=== PATIENT | female | born 1955 | race Hispanic/Latino ===

== ENCOUNTER 2018-03-06 08:38 | Emergency (ER) | payer OTHER ==
[2018-03-06] MEDS ORDERED: LIDOCAINE VISCOUS 2% SOLN 15 ML UDC ONE (09:49)
[2018-03-06] MEDS ORDERED: MAGNE/ALUM HYDROXD 30 ML UCUP ONE (09:49)
[2018-03-06] MEDS ORDERED: LORazepam 2 MG/ML VIAL ONE (09:49)
[2018-03-06 10:05] LABS: Absolute Lymphocytes (CBC) 1.9 K/uL (0.7-4.9); Absolute Monocytes 0.4 K/uL (0.1-1.3); Absolute Neutrophil 4.1 K/uL (1.8-8.0); Eosinophils % 5.5 % (0-4.4); Hematocrit 38.5 % (36.0-45.0); Lymphocytes % 27.5 % (15.3-44.8); MCH 30.3 pg (27.0-35.0); MCV 87.2 fL (80-100); MPV 8.4 fL (7.6-11.3); Monocytes % 5.2 % (3.3-12.3); RBC Red Blood Cell Count 4.41 M/uL (3.86-4.86)
[2018-03-06 10:22] LABS: Albumin 3.9 g/dL (3.4-5.0); Bilirubin Direct 0.1 mg/dL (0-0.2); Bilirubin Total 0.4 mg/dL (0.2-1.0); Potassium 4.2 mmol/L (3.5-5.1); Protein, Total 7.4 g/dL (6.4-8.2)
--- NOTE | 2018-03-06 11:00 | ER ---
Nurse's Notes [facility] Name: Sintia Garcia Age: 63 yrs Sex: Female : 1955 Arrival Date: 03/06/2018 Time: 08:44 Bed 17 Private MD: Ortega Tuttle E Diagnosis: Gastritis, unspecified, without bleeding Presentation: 03/06 09:00 Presenting complaint: Patient states: burning in epigastric region for past 3 days with em nausea, denies vomiting, hx of GERD, also c/o weakness and dizziness, also c/o high blood pressure and stopped taking prescribed medication due to all the side effects she read. Transition of care: patient was not received from another setting of care. Onset of symptoms was March 03, 2018. Risk Assessment: Do you want to hurt yourself or someone else? Patient reports no desire to harm self or others. Initial Sepsis Screen: Does the patient meet any 2 criteria? No. Patient's initial sepsis screen is negative. Does the patient have a suspected source of infection? No. Patient's initial sepsis screen is negative. Care prior to arrival: None. 09:00 Method Of Arrival: Ambulatory em 09:00 Acuity: SALOMON 3 iw Triage Assessment: 09:04 Headache History: Denies prior headaches. General: Appears in no apparent distress. em uncomfortable, obese, Behavior is cooperative, anxious. Pain: Complains of pain in epigastric area Pain currently is 6 out of 10 on a pain scale. Pain: Pain began 2-3 days ago. Also complains of no other associated symptoms. nausea. Neuro: Level of Consciousness is awake, alert, obeys commands, Oriented to person, place, time, situation. Historical: - Allergies: :04 No Known Allergies; em - PMHx: 09:04 High Cholesterol; GERD; Hyperlipidemia; em - PSHx: 09:04 Cholecystectomy; Hysterectomy; FOOT SX; Carpal Tunnel Repair; em - Immunization history:: Adult Immunizations not up to date. - Social history:: Smoking status: Patient/guardian denies using tobacco. - Ebola Screening: : Patient negative for fever greater than or equal to 101.5 degrees Fahrenheit, and additional compatible Ebola Virus Disease symptoms Patient denies exposure to infectious person Patient denies travel to an Ebola-affected area in the 21 days before illness onset No symptoms or risks identified at this time. Screenin:06 Abuse screen: Denies threats or abuse. Nutritional screening: No deficits noted. em Tuberculosis screening: No symptoms or risk factors identified. Fall Risk None identified. Assessment: 09:05 General: Appears uncomfortable, obese, Behavior is cooperative, anxious. Pain: em Complains of pain in epigastric area Pain currently is 6 out of 10 on a pain scale. Neuro: Level of Consciousness is awake, alert, obeys commands, Oriented to person, place, time, situation. Cardiovascular: Capillary refill < 3 seconds Patient's skin is warm and dry. Respiratory: Airway is patent Respiratory effort is even, unlabored, Respiratory pattern is regular, symmetrical. GI: Abdomen is obese, Reports nausea, Patient currently denies vomiting. : No signs and/or symptoms were reported regarding the genitourinary system. EENT: No signs and/or symptoms were reported regarding the EENT system. Derm: Skin is intact, Skin is pink, warm \T\ dry. Musculoskeletal: Range of motion: intact in all extremities. 09:15 Reassessment: Patient appears in no apparent distress at this time. I agree with above iw assessment by Murphy Argueta LVN. 10:00 Reassessment: Patient appears in no apparent distress at this time. Patient and/or em family updated on plan of care and expected duration. Pain level reassessed. Patient is alert, oriented x 3, equal unlabored respirations, skin warm/dry/pink. 11:10 Reassessment: Patient appears in no apparent distress at this time. Patient and/or em family updated on plan of care and expected duration. Pain level reassessed. Patient is alert, oriented x 3, equal unlabored respirations, skin warm/dry/pink. rates pain 4/10 Patient states feeling better. Patient states symptoms have improved. Vital Signs: 09:04 BP 159 / 86; Pulse 83; Resp 20; Temp 98.2(O); Pulse Ox 95% on R/A; Weight 97.52 kg; em Height 5 ft. 3 in. (160.02 cm); Pain 6/10; 10:00 BP 161 / 98; Pulse 73; Resp 20; Pulse Ox 98% on R/A; em 11:02 BP 155 / 88; Pulse 75; Resp 16; Pulse Ox 97% on R/A; Pain 4/10; em 09:04 Body Mass Index 38.09 (97.52 kg, 160.02 cm) em ED Course: 08:44 Patient arrived in ED. mr 08:44 Ortega Tuttle MD is Private Physician. mr 08:53 [facility]. jr8 08:53 Gerardo Damico MD is Attending Physician. jr8 08:59 Murphy Argueta LVN is Primary Nurse. em 09:04 Arm band placed on. em 09:06 Patient has correct armband on for positive identification. Bed in low position. Call em light in reach. 09:55 No provider procedures requiring assistance completed. Initial lab(s) drawn, by me, em sent to lab. Inserted saline lock: 20 gauge in right antecubital area, using aseptic technique. 10:17 Triage completed. iw 10:30 Ultrasound completed. Patient tolerated well. sg3 10:34 US Abdomen Complete In Process Unspecified. EDMS 10:59 Ortega Tuttle MD is Referral Physician. jr8 11:17 IV discontinued, intact, bleeding controlled, No redness/swelling at site. Pressure em dressing applied. Administered Medications: 09:57 Drug: GI Cocktail without - (Maalox Suspension 30 ml, Lidocaine Liquid 2 % 15 em ml) Route: PO; 11:04 Follow up: Response: No adverse reaction em 10:05 Drug: Ativan 0.5 mg Route: IVP; Site: right antecubital; iw 11:04 Follow up: Response: No adverse reaction; Anxiety decreased em Outcome: 10:59 Discharge ordered by . jr8 11:18 Discharged to home ambulatory. em 11:18 Condition: good 11:18 Discharge instructions given to patient, Instructed on discharge instructions, follow up and referral plans. medication usage, Demonstrated understanding of instructions, follow-up care, medications, Prescriptions given X 2. 11:19 Patient left the ED. em Signatures: Dispatcher [employer] Mayelin Bui mr Murphy Argueta LVN LVN em Noemy Mayo RN RN iw Charly John PA PA jr8 Shannon Dong sg3
--- NOTE | 2018-03-06 11:00 | EDPHYS ---
Physician Documentation [facility] Name: Sintia Garcia Age: 63 yrs Sex: Female : 1955 Arrival Date: 03/06/2018 Time: 08:44 Bed 17 Private MD: Ortega Tuttle E ED Physician Gerardo Damico HPI: 03/06 10:35 This 63 yrs old Female presents to ER via Ambulatory with complaints of jr8 Abdominal Pain. 10:35 The patient presents with abdominal pain in the epigastric area. Onset: The jr8 symptoms/episode began/occurred acutely, yesterday. The symptoms do not radiate. Associated signs and symptoms: none. The symptoms are described as burning. Modifying factors: The symptoms are alleviated by antacids, the symptoms are aggravated by emotional upset. Severity of pain: At its worst the pain was moderate in the emergency department the pain is unchanged. The patient has experienced similar episodes in the past, a few times. The patient has not recently seen a physician. Historical: - Allergies: 09:04 No Known Allergies; em - PMHx: 09:04 High Cholesterol; GERD; Hyperlipidemia; em - PSHx: 09:04 Cholecystectomy; Hysterectomy; FOOT SX; Carpal Tunnel Repair; em - Immunization history:: Adult Immunizations not up to date. - Social history:: Smoking status: Patient/guardian denies using tobacco. - Ebola Screening: : Patient negative for fever greater than or equal to 101.5 degrees Fahrenheit, and additional compatible Ebola Virus Disease symptoms Patient denies exposure to infectious person Patient denies travel to an Ebola-affected area in the 21 days before illness onset No symptoms or risks identified at this time. ROS: 10:35 Eyes: Negative for injury, pain, redness, and discharge, ENT: Negative for injury, jr8 pain, and discharge, Neck: Negative for injury, pain, and swelling, Cardiovascular: Negative for chest pain, palpitations, and edema, Respiratory: Negative for shortness of breath, cough, wheezing, and pleuritic chest pain, Back: Negative for injury and pain, MS/Extremity: Negative for injury and deformity, Skin: Negative for injury, rash, and discoloration, Neuro: Negative for headache, weakness, numbness, tingling, and seizure. 10:35 Abdomen/GI: Positive for abdominal pain, Negative for nausea, vomiting, and diarrhea, abdominal distension, anorexia, dysphagia, hematemesis, black/tarry stool, rectal pain, rectal bleeding, bowel incontinence, flatulence. Exam: 10:35 Eyes: Pupils equal round and reactive to light, extra-ocular motions intact. Lids and jr8 lashes normal. Conjunctiva and sclera are non-icteric and not injected. Cornea within normal limits. Periorbital areas with no swelling, redness, or edema. ENT: Nares patent. No nasal discharge, no septal abnormalities noted. Tympanic membranes are normal and external auditory canals are clear. Oropharynx with no redness, swelling, or masses, exudates, or evidence of obstruction, uvula midline. Mucous membranes moist. Neck: Trachea midline, no thyromegaly or masses palpated, and no cervical lymphadenopathy. Supple, full range of motion without nuchal rigidity, or vertebral point tenderness. No Meningismus. Cardiovascular: Regular rate and rhythm with a normal S1 and S2. No gallops, murmurs, or rubs. Normal PMI, no JVD. No pulse deficits. Respiratory: Lungs have equal breath sounds bilaterally, clear to auscultation and percussion. No rales, rhonchi or wheezes noted. No increased work of breathing, no retractions or nasal flaring. Back: No spinal tenderness. No costovertebral tenderness. Full range of motion. Skin: Warm, dry with normal turgor. Normal color with no rashes, no lesions, and no evidence of cellulitis. MS/ Extremity: Pulses equal, no cyanosis. Neurovascular intact. Full, normal range of motion. Neuro: Awake and alert, GCS 15, oriented to person, place, time, and situation. Cranial nerves II-XII grossly intact. Motor strength 5/5 in all extremities. Sensory grossly intact. Cerebellar exam normal. Normal gait. 10:35 Abdomen/GI: Inspection: abdomen appears normal, Bowel sounds: active, all quadrants, Palpation: soft, in all quadrants, mild abdominal tenderness, in the epigastric area, mass, is not appreciated, rebound tenderness, is not appreciated, voluntary guarding, is not appreciated, involuntary guarding, is not appreciated, no appreciated organomegaly, Indicators: McBurney's point is not tender, Gonzales's sign is negative, Rovsing's sign is negative, Liver: no appreciated palpable abnormalities, tenderness, is not appreciated. Vital Signs: 09:04 BP 159 / 86; Pulse 83; Resp 20; Temp 98.2(O); Pulse Ox 95% on R/A; Weight 97.52 kg; em Height 5 ft. 3 in. (160.02 cm); Pain 6/10; 10:00 BP 161 / 98; Pulse 73; Resp 20; Pulse Ox 98% on R/A; em 11:02 BP 155 / 88; Pulse 75; Resp 16; Pulse Ox 97% on R/A; Pain 4/10; em 09:04 Body Mass Index 38.09 (97.52 kg, 160.02 cm) em MDM: 08:53 Patient medically screened. [facility] 10:59 Data reviewed: vital signs, nurses notes, lab test result(s), radiologic studies, jr8 ultrasound, and as a result, I will discharge patient. Data interpreted: Pulse oximetry: on room air is 98 %. Interpretation: normal. 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 Response to treatment: the patient's symptoms have markedly improved after treatment. 03/06 09:21 Order name: Basic Metabolic Panel; Complete Time: 10:34 tw2 03/06 09:21 Order name: CBC with Diff; Complete Time: 10:16 tw2 03/06 09:21 Order name: Creatinine for Radiology; Complete Time: 10:34 tw2 03/06 09:21 Order name: Hepatic Function; Complete Time: 10:34 tw2 03/06 09:21 Order name: Lipase; Complete Time: 10:34 tw2 03/06 09:21 Order name: US Abdomen Complete; Complete Time: 11:12 tw2 Administered Medications: 09:57 Drug: GI Cocktail without - (Maalox Suspension 30 ml, Lidocaine Liquid 2 % 15 em ml) Route: PO; 11:04 Follow up: Response: No adverse reaction em 10:05 Drug: Ativan 0.5 mg Route: IVP; Site: right antecubital; iw 11:04 Follow up: Response: No adverse reaction; Anxiety decreased em Disposition: 03/06/18 10:59 Discharged to Home. Impression: Gastritis, unspecified, without bleeding. - Condition is Stable. - Discharge Instructions: Gastritis, Adult. - Prescriptions for Carafate 1 gram Oral Tablet - take 1 tablet by ORAL route 4 times per day take on an empty stomach, beginning on waking and last dose at bedtime; 100 tablet. Hydroxyzine HCl 50 mg Oral Tablet - take 1 tablet by ORAL route every 8 hours As needed; 20 tablet. - Medication Reconciliation Form, Thank You Letter, Antibiotic Education, Prescription Opioid Use form. - Follow up: Ortega Tuttle MD; When: 2 - 3 days; Reason: Recheck today's complaints, Continuance of care, Re-evaluation by your physician. - Problem is new. - Symptoms have improved. Addendum: 03/07/2018 14:14 Co-signature as Attending Physician, Gerardo Damico MD I agree with the assessment and c barker plan of care. Signatures: Dispatcher [employer] EDVT Gerardo Damico MD MD cha Munoz, Edgar, RECRUITER COORDINATOR RECRUITER COORDINATOR em Noemy Mayo, RN RN Charly Rae PA PA jr8 Nina Lo, RN RN tw2 Corrections: (The following items were deleted from the chart) 03/06 11:19 10:59 03/06/2018 10:59 Discharged to Home. Impression: Gastritis, unspecified, without em bleeding. Condition is Stable. Forms are Medication Reconciliation Form, Thank You Letter, Antibiotic Education, Prescription Opioid Use. Follow up: Ortega Tuttle; When: 2 - 3 days; Reason: Recheck today's complaints, Continuance of care, Re-evaluation by your physician. Problem is new. Symptoms have improved. jr8
--- NOTE | 2018-03-06 11:10 | RAD REPORT ---
EXAM DESCRIPTION: US - Abdomen Exam Complete - 03/06/2018 10:33 am CLINICAL HISTORY: Abdominal pain/epigastric pain COMPARISON: 2007 cat scan FINDINGS: The liver has a mildly increased echotexture. Evaluation is somewhat limited The gallbladder has been removed. The biliary tree is normal caliber. The pancreas appears normal in size and echotexture The right kidney measures 12 centimeters with a normal echotexture. The left kidney measures 11 centimeters with a normal echotexture. The spleen measures 10 centimeters. The evaluation of the abdominal aorta inferior vena cava was limited without visualization of a gross abnormality IMPRESSION: Mildly increased hepatic echotexture probably indicating mild fatty infiltration Cholecystectomy
[2018-03-06 11:24] VITALS: TEMP 98.2
[2018-03-06 11:26] VITALS: BP 155/88; O2SAT 97
[2018-03-07] MEDS ORDERED: NA CHLORIDE 0.9% 1,000 ML ONE (17:19)
[2018-03-07] MEDS ORDERED: FENTANYL CITR 100 MCG/2 ML ONE (17:19)
== END 2018-03-06 11:19 | disposition home or self-care (01) ==
LOC: ER 08:38
DX: K29.70 Gastritis, unspecified, without bleeding (principal); E78.00 Pure hypercholesterolemia, unspecified; K21.9 Gastro-esophageal reflux disease without esophagitis; E78.5 Hyperlipidemia, unspecified
CPT/HCPCS: 36415; 76700; 80048; 80076; 83690; 85025; 96374; 99284; J3010; J7030

== ENCOUNTER 2018-06-28 09:06 | Emergency (ER) | payer OTHER ==
--- NOTE | 2018-06-28 11:09 | RAD REPORT ---
EXAM DESCRIPTION: RAD - Humerus Left - 06/28/2018 9:53 am CLINICAL HISTORY: Arm pain COMPARISON: None. FINDINGS: No fracture is identified. There is no dislocation or periosteal reaction noted. Minimal AC joint degenerative change present along the superior margin. No inferior spurring and acromial hum eral joint space is normal. No suspicious soft tissue finding. IMPRESSION: Negative left humerus examination.
--- NOTE | 2018-06-28 11:10 | RAD REPORT ---
EXAM DESCRIPTION: RAD - Pelvis - 06/28/2018 9:52 am CLINICAL HISTORY: Fall history, pelvic and hip pain COMPARISON: None. TECHNIQUE: AP imaging of the pelvis was obtained. FINDINGS: No fracture of the bony pelvis. No fracture, dislocation or other acute hip joint finding. No significant SI joint findings. No soft tissue abnormality. IMPRESSION: Negative pelvis for acute or significant findings.
--- NOTE | 2018-06-28 11:12 | RAD REPORT ---
EXAM DESCRIPTION: RAD - Lumbar Spine 3 Views - 06/28/2018 9:53 am CLINICAL HISTORY: Back pain, fall history COMPARISON: None. FINDINGS: A three-view lumbar spine examination was performed. Lumbar bodies are normal in height an d alignment. No fracture or acute bony process seen. No disc space narrowing. Moderate L5-S1 facet yordy int degenerative change present. No pars defects identified. Phleboliths seen in the lower pelvis. There is a focal density superimposed on each L3 transverse pro cess that is believed to be normal bone density. Patient details no history that would suggest ureter al calculus. IMPRESSION: No fracture or acute lumbar finding. Moderate L5-S1 facet degenerative change.
--- NOTE | 2018-06-28 11:18 | ER ---
Nurse's Notes [facility] Name: Sintia Garcia Age: 63 yrs Sex: Female : 1955 Arrival Date: 06/28/2018 Time: 09:10 Bed 15 Private MD: Ortega Tuttle E Diagnosis: Contusion of left upper arm;Contusion of lower back and pelvis Presentation: 06/28 09:23 Presenting complaint: Patient states: Fell three weeks ago and right hip and left arm jl7 have been hurting since then. Transition of care: patient was not received from another setting of care. Onset of symptoms was June 06, 2018. Risk Assessment: Do you want to hurt yourself or someone else? Patient reports no desire to harm self or others. Initial Sepsis Screen: Does the patient meet any 2 criteria? No. Patient's initial sepsis screen is negative. Does the patient have a suspected source of infection? No. Patient's initial sepsis screen is negative. Care prior to arrival: None. 09:23 Method Of Arrival: Ambulatory [facility] 09:23 Acuity: SALOMON 4 jl7 Triage Assessment: 09:23 General: Appears in no apparent distress. uncomfortable, Behavior is calm, cooperative, jl7 appropriate for age. Pain: Complains of pain in right hip and left arm Pain currently is 6 out of 10 on a pain scale. Pain began 3 weeks ago. Neuro: Level of Consciousness is awake, alert, obeys commands. Cardiovascular: Patient's skin is warm and dry. Respiratory: Airway is patent Respiratory effort is even, unlabored, Respiratory pattern is regular, symmetrical. Derm: Skin is pink, warm \T\ dry. Musculoskeletal: Range of motion: limited in left shoulder and right hip. Historical: - Allergies: : No Known Allergies; jl7 - Home Meds: 09: CBD oil [Active]; Turmeric Curcumin 500 mg [Active]; rb1 - PMHx: 09:10 GERD; High Cholesterol; Hyperlipidemia; rb1 - PSHx: 09:10 Cholecystectomy; Hysterectomy; FOOT SX; Carpal Tunnel Repair; rb1 - Immunization history:: Adult Immunizations unknown. - Social history:: Smoking status: Patient/guardian denies using tobacco, Patient uses CBD oil for pain. - Ebola Screening: : No symptoms or risks identified at this time. - Family history:: not pertinent. - Hospitalizations: : No recent hospitalization is reported. Screenin:10 Abuse screen: Denies threats or abuse. Nutritional screening: No deficits noted. rb1 Tuberculosis screening: No symptoms or risk factors identified. Fall Risk Fall in past 12 months (25 points). No secondary diagnosis (0 pts). No IV (0 pts). Ambulatory Aid- None/Bed Rest/Nurse Assist (0 pts). Gait- Normal/Bed Rest/Wheelchair (0 pts) Mental Status- Oriented to own ability (0 pts). Total Rosas Fall Scale indicates Low Risk Score (25-44 pts). Fall prevention measures have been instituted. Side Rails Up X 2 Placed close to Nursing Station 1:1 attendant Assigned to Pt. Frequent Obs/Assesments occuring As available Patient and Family Educated on Fall Prevention Program and strategies. Assessment: 09:10 General: Appears uncomfortable, obese, Behavior is calm, cooperative, Pt. reports rb1 falling 2-3 weeks ago landing on her right hip.. Pain: Complains of pain in right low back and left bicep. Pain: Quality of pain is described as sharp, stabbing. Neuro: Level of Consciousness is awake, alert, obeys commands, Oriented to person, place, time, situation. Cardiovascular: Capillary refill < 3 seconds is brisk in bilateral fingers. 09:10 Respiratory: Airway is patent Respiratory effort is even, unlabored, Respiratory rb1 pattern is regular, symmetrical. GI: No signs and/or symptoms were reported involving the gastrointestinal system. : No signs and/or symptoms were reported regarding the genitourinary system. Derm: Skin is dry, Skin is normal, Skin temperature is warm. Musculoskeletal: Range of motion: intact in all extremities. 09:30 Reassessment: Pt. went to x-ray. rb1 10:30 Reassessment: Patient appears in no apparent distress at this time. Patient and/or rb1 family updated on plan of care and expected duration. Pain level reassessed. Patient is alert, oriented x 3, equal unlabored respirations, skin warm/dry/pink. Pt. is on her telephone, at bedside. 11:30 Reassessment: Patient appears in no apparent distress at this time. No changes from rb1 previously documented assessment. Vital Signs: 09:23 BP 162 / 96; Pulse 81; Resp 16 S; Temp 98.4(O); Pulse Ox 97% on R/A; Weight 99.79 kg jl7 (R); Height 5 ft. 0 in. (152.40 cm) (R); Pain 6/10; 10:22 BP 130 / 82; Pulse 75; Resp 18; Pulse Ox 96% on R/A; rb1 11:20 BP 122 / 87; Pulse 80; Resp 17; Pulse Ox 97% on R/A; Pain 4/10; rb1 09:23 Body Mass Index 42.97 (99.79 kg, 152.40 cm) 7 ED Course: 09:10 Patient arrived in ED. sb2 09:10 Orteag Tuttle MD is Private Physician. sb2 09:10 Patient has correct armband on for positive identification. Bed in low position. Call rb1 light in reach. Side rails up X 1. Pulse ox on. NIBP on. 09:11 Juliette Storey, RN is Primary Nurse. rb1 09:11 Juan J Nava MD is Attending Physician. rn 09:23 Arm band placed on right wrist. jl7 09:24 Triage completed. jl7 09:35 Patient moved to radiology via wheelchair. jb2 09:50 X-ray completed. Patient tolerated procedure well. jb2 09:51 Patient moved back from radiology. jb2 09:51 XRAY Pelvis In Process Unspecified. EDMS 09:51 XRAY Lumbar Spine (3 Views) In Process Unspecified. EDMS 09:51 XRAY Humerus LEFT In Process Unspecified. EDMS 11:17 Ortega Tuttle MD is Referral Physician. rn 11:37 No provider procedures requiring assistance completed. Patient did not have IV access rb1 during this emergency room visit. Administered Medications: No medications were administered Outcome: 11:17 Discharge ordered by . rn 11:37 Discharged to home ambulatory, with significant other. rb1 11:37 Condition: stable 11:37 Discharge instructions given to patient, Instructed on discharge instructions, follow up and referral plans. Demonstrated understanding of instructions, follow-up care, Prescriptions given X none 11:38 Patient left the ED. rb1 Signatures: Dispatcher [employer] EDMS Sandra Jose Guadalupe jb2 Juan J Nava MD MD rn Barber, Rebecca, RN RN rb1 Christian Cavazos RN RN jl7 Jazmin Vidales sb2
--- NOTE | 2018-06-28 11:18 | EDPHYS ---
Physician Documentation [facility] Name: Sintia Garcia Age: 63 yrs Sex: Female : 1955 Arrival Date: 06/28/2018 Time: 09:10 Bed 15 Private MD: Ortega Tuttle E ED Physician Juan J Nava HPI: 06/28 09:25 This 63 yrs old Female presents to ER via Ambulatory with complaints of Fall rn Injury - 3wk ago. 09:25 Details of fall: The patient fell from an upright position, while walking. rn 10:03 Onset: The symptoms/episode began/occurred 3 week(s) ago. Associated injuries: The rn patient sustained injury to the low back. Severity of symptoms: At their worst the symptoms were mild, in the emergency department the symptoms are unchanged. The patient has not experienced similar symptoms in the past. Reports fell from standing 3 weeks ago, has had some back/right buttocks soreness as well as left arm soreness since then, hurts to walk and lift things, tried to see her pcp and ortho, unable to get in for eval so came here for eval. . Historical: - Allergies: 09:26 No Known Allergies; jl7 - Home Meds: 09:10 CBD oil [Active]; Turmeric Curcumin 500 mg [Active]; rb1 - PMHx: 09:10 GERD; High Cholesterol; Hyperlipidemia; rb1 - PSHx: 09:10 Cholecystectomy; Hysterectomy; FOOT SX; Carpal Tunnel Repair; rb1 - Immunization history:: Adult Immunizations unknown. - Social history:: Smoking status: Patient/guardian denies using tobacco, Patient uses CBD oil for pain. - Ebola Screening: : No symptoms or risks identified at this time. - Family history:: not pertinent. - Hospitalizations: : No recent hospitalization is reported. ROS: 10:03 Constitutional: Negative for fever, chills, and weight loss, Eyes: Negative for injury, rn pain, redness, and discharge, Neck: Negative for injury, pain, and swelling, Cardiovascular: Negative for chest pain, palpitations, and edema, Respiratory: Negative for shortness of breath, cough, wheezing, and pleuritic chest pain, Abdomen/GI: Negative for abdominal pain, nausea, vomiting, diarrhea, and constipation, Back: + right lower back pain and buttocks injury MS/Extremity: + left arm pain Skin: Negative for injury, rash, and discoloration, Neuro: Negative for headache, weakness, numbness, tingling, and seizure. Exam: 10:03 Constitutional: This is a well developed, well nourished patient who is awake, alert, rn and in no acute distress. Ambulatory to room with antalgic gait Head/Face: Normocephalic, atraumatic. Neck: Trachea midline, no thyromegaly or masses palpated, and no cervical lymphadenopathy. Supple, full range of motion without nuchal rigidity, or vertebral point tenderness. No Meningismus. Back: No spinal tenderness. No costovertebral tenderness. Full range of motion. MS/ Extremity: Pulses equal, no cyanosis. Neurovascular intact. Full, normal range of motion. Equal circumference. Mild mid-shaft left humeral tenderness and biceps tenderness without ecchymosis or deformity. + mild tenderness right buttocks, without swelling or deformity. No hip tenderness. Neuro: Awake and alert, GCS 15, oriented to person, place, time, and situation. Cranial nerves II-XII grossly intact. Motor strength 5/5 in all extremities. Sensory grossly intact. Cerebellar exam normal. Normal gait. Vital Signs: 09:23 BP 162 / 96; Pulse 81; Resp 16 S; Temp 98.4(O); Pulse Ox 97% on R/A; Weight 99.79 kg jl7 (R); Height 5 ft. 0 in. (152.40 cm) (R); Pain 6/10; 10:22 BP 130 / 82; Pulse 75; Resp 18; Pulse Ox 96% on R/A; rb1 11:20 BP 122 / 87; Pulse 80; Resp 17; Pulse Ox 97% on R/A; Pain 4/10; rb1 09:23 Body Mass Index 42.97 (99.79 kg, 152.40 cm) jl7 MDM: 09:11 Patient medically screened. rn 11:17 Differential diagnosis: contusion, fracture, sprain, strain. Data reviewed: vital rn signs, nurses notes, radiologic studies, plain films, and as a result, I will discharge patient. Counseling: I had a detailed discussion with the patient and/or guardian regarding: the historical points, exam findings, and any diagnostic results supporting the discharge/admit diagnosis, radiology results, the need for outpatient follow up, to return to the emergency department if symptoms worsen or persist or if there are any questions or concerns that arise at home. Special discussion: I discussed with the patient/guardian in detail that at this point there is no indication for admission to the hospital. It is understood, however, that if the symptoms persist or worsen the patient needs to return immediately for re-evaluation. 06/28 09:20 Order name: XRAY Pelvis; Complete Time: 11:16 rn 06/28 09:20 Order name: XRAY Lumbar Spine (3 Views); Complete Time: 11:16 rn 06/28 09:20 Order name: XRAY Humerus LEFT; Complete Time: 11:16 rn Administered Medications: No medications were administered Disposition: 06/28/18 11:17 Discharged to Home. Impression: Contusion of left upper arm, Contusion of lower back and pelvis. - Condition is Stable. - Discharge Instructions: Contusion. - Medication Reconciliation Form, Thank You Letter, Antibiotic Education, Prescription Opioid Use form. - Follow up: Ortega Tuttle MD; When: As needed; Reason: Recheck today's complaints, Re-evaluation by your physician. - Problem is an ongoing problem. - Symptoms have improved. Signatures: Dispatcher [employer] EDMS Juan J Nava MD MD rn Juliette Storey RN RN rb1 Christian Cavazos RN RN jl7 Corrections: (The following items were deleted from the chart) 11:38 11:17 06/28/2018 11:17 Discharged to Home. Impression: Contusion of left upper arm; rb1 Contusion of lower back and pelvis. Condition is Stable. Forms are Medication Reconciliation Form, Thank You Letter, Antibiotic Education, Prescription Opioid Use. Follow up: Ortega Tuttle; When: As needed; Reason: Recheck today's complaints, Re-evaluation by your physician. Problem is an ongoing problem. Symptoms have improved. rn
[2018-06-28 11:48] VITALS: TEMP 98.4
[2018-06-28 11:51] VITALS: BP 122/87; O2SAT 97
== END 2018-06-28 11:38 | disposition home or self-care (01) ==
LOC: ER 09:06
DX: S40.022A Contusion of left upper arm, initial encounter (principal); S30.0XXA Contusion of lower back and pelvis, initial encounter; W18.30XA Fall on same level, unspecified, initial encounter; Y93.01 Activity, walking, marching and hiking; Y92.9 Unspecified place or not applicable; E78.5 Hyperlipidemia, unspecified; K21.9 Gastro-esophageal reflux disease without esophagitis
CPT/HCPCS: 72100; 72170; 99283

== ENCOUNTER 2020-07-16 09:56 | Emergency (ER) | payer OTHER ==
--- OUTSIDE RECORDS SUMMARY | 2020-07-16 10:15 | XMS REPORT | Summary of Care ---
:1955 Author Organization [facility] - Health Address [address] [place] [id number] Care Team Providers Name Role Phone MD Keo Primary Care Provider Encounter Details Date Type Department Care Team Description 05/20/2020 Orders Only [facility] Doctor Unassigned, No [address] [facility] [place] [address] [address] [place] [address] Allergies No Known Allergiesdocumented as of this encounter (statuses as of 05/20/2020) Medications Medication Sig Dispensed Refills Start Date End Date Status diazePAM (VALIUM) 5 mg Take 1 tablet by 15 tablet 0 12/19/2018 Active tabletIndications: mouth 3 (three) Acute right-sided times daily as thoracic back pain needed for Muscle Spasms. acetaminophen-codeine Take 1 tablet by 20 tablet 0 12/19/2018 Active (TYLENOL-CODEINE #3) mouth every 4 300-30 mg (four) hours as tabletIndications: needed for Pain Acute right-sided (scale 1-3). thoracic back pain documented as of this encounter (statuses as of 05/20/2020) Active Problems No known active problemsdocumented as of this encounter (statuses as of 05/20/2020) Social History Tobacco Use Types Packs/Day Years Used Date Never Assessed Sex Assigned at Date Recorded Not on file documented as of this encounter Last Filed Vital Signs Not on filedocumented in this encounter Plan of Treatment Health Maintenance Due Date Last Done Comments HEPATITIS C (HCV) SCREEN 1955 Depression Screening 1965 DTaP,Tdap,and Td Vaccines (1 - Tdap) 02/17/1972 Breast Cancer Screening (MAMMOGRAM) 1993 COLON CANCER SCREENING ANNUAL FIT/FOBT 2003 COLON CANCER SCREENING FIT DNA EVERY 3 YEARS 2003 COLON CANCER SCREENING SIGMOIDOSCOPY EVERY 5 YEARS 2003 COLONOSCOPY 2003 Colorectal Cancer Screening 2003 Zoster Recombinant Vaccine (SHINGRIX) (1 of 2) 2003 Medicare Wellness Visit 2018 Osteoporosis Screening 2018 PNEUMOCOCCAL VACCINES 65+ (1 of 1 - PPSV23) 2018 INFLUENZA VACCINE (#1) 2020 documented as of this encounter Procedures Procedure Name Priority Date/Time Associated Diagnosis Comme nts CONSENT/REFUSAL FOR Routine 05/20/2020 3:06 PM CDT DIAGNOSIS AND TREATMENT documented in this encounter Results Not on filedocumented in this encounter Insurance Payer Benefit Plan / Subscriber ID Effective Dates Phone Addre ss Type Group [employer] [id number] 2018-Present Medicare Adv [place] HMO documented as of this encounter
--- OUTSIDE RECORDS SUMMARY | 2020-07-16 10:15 | XMS REPORT | Continuity of Care Document ---
:1955 Author Organization [facility] t Address [address] [place] [address] Care Team Providers Name Role Phone Lawson PINEDA Attending Clinician Doctor Unassigned, Name Attending Clinician Unavailable Moshe GONZALEZ Attending Clinician Problems Condition Condition Condition Status Onset Resolution Last Treating Co mments Source Name Details Category Date Date Treatment Clinician Date Sciatica Sciatica Problem [facility] Piriformis Piriformis Problem Active C [facility] syndrome syndrome [facility] Allergies, Adverse Reactions, Alerts This patient has no known allergies or adverse reactions. Medications Ordered Filled Start Stop Current Ordering Indication Dosage Frequency Signature Comments Components Source Medication Medication Date Date Medication? Clinician (SIG) Name Name Pantoprazol Pantoprazol Yes Neo [address] [facility] [address] [facility] Sodium e Sodium 11-10 [facility] - [facility]: [facility] Cyclobenzap Cyclobenzap 2018- Yes Neo [address] rine HCl rine HCl 11-10 [place] as needed Sherita kes - 00:00: [facility] 00 [facility] Medrol Medrol Yes Neo as [facility] 4-11 [facility] directed [facility] - 00:[facility]: [facility] 00 [facility] Clinics Procedures This patient has no known procedures. Encounters Start End Encounter Admission Attending Care Care Encounter Source Date/Time Date/Time Type Type Clinicians Facility Department ID 2020-06-24 2020-06-24 Emergency [place], [facility] [id number] 08:28:00 11:05:00 [place] [id number] [place] [id number] [place] [id number] 2020-06-24 2020-06-24 Orders Doctor RERE [id number] 00:00:00 00:00:00 Only Unassigned, [id number] [place] [id number] 2020-05-20 2020-05-20 Emergency [place], [facility] [id number] 15:19:00 18:28:00 [place] [id number] [place] [id number] [place] [id number] 2020-05-20 2020-05-20 Orders Doctor JERNIGAN [id number] 00:00:00 00:00:00 Only Unassigned, [place] [id number] 2018-11-11 2018-11-11 [facility] [id number] 11:12:00 11:12:00 [facility] Clinics 2018-11-10 2018-11-10 [facility] [id number] 10:30:00 10:30:00 t [facility] Results This patient has no known results.
--- OUTSIDE RECORDS SUMMARY | 2020-07-16 10:16 | XMS REPORT | Summary of Care ---
:1955 Author Organization [facility] - Health Address [address] [place] [id number] Care Team Providers Name Role Phone MD Keo Primary Care Provider Encounter Details Date Type Department Care Team Description 06/24/2020 Orders Only [facility] Doctor Unassigned, No 301 [facility] var Name [place] [id number] Allergies No Known Allergiesdocumented as of this encounter (statuses as of 06/24/2020) Medications Medication Sig Dispensed Refills Start Date [...] as of this encounter (statuses as of 06/24/2020) Active Problems No known active problemsdocumented as of this encounter (statuses as of 06/24/2020) Social History Tobacco Use Types Packs/Day Years Used Date Never Assessed Sex Assigned at Date Recorded Not on file documented as of this encounter Last Filed Vital Signs Not on filedocumented in this encounter Plan of Treatment Date Type Specialty Care Team Description 07/03/2020 Appointment Radiology Radiology [address] [place] [phone] Health Maintenance Due Date Last Done Comments [...] Associated Diagnosis Comme nts CONSENT/REFUSAL FOR Routine 06/24/2020 8:15 AM 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
--- OUTSIDE RECORDS SUMMARY | 2020-07-16 10:16 | XMS REPORT | Summary of Care ---
:[address] 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 [address] [place] [phone] Reason for Visit Reason Comments Chest Pain SWELLING Headache Auth/Cert Status Reason Specialty Diagnoses / Referred By Referred To Procedures Contact Contact Emergency Medicine [facility] Em ergency Dept [address] [place] [address] Fax: Encounter Details Date Type Department Care Team Description 05/20/2020 Emergency [facility]-Emergency Eliana Mesa, Atypical chest pain (Primary Dx); Department 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 documented as of this encounter Last Filed Vital Signs Vital Sign Reading Time Taken Comments Blood Pressure 138/92 05/20/2020 6:23 PM CDT Pulse 65 05/20/2020 6:23 PM CDT Temperature 37.3 C (99.2 F) 05/20/2020 3:16 PM CDT Respiratory Rate 18 05/20/2020 6:23 PM CDT Oxygen Saturation 97% 05/20/2020 6:23 PM CDT Inhaled Oxygen Concentration - - Weight 97.5 kg (215 lb) 05/20/2020 3:16 PM CDT Height - - Body Mass Index 41.99 09/22/2017 9:47 AM [employer] documented in this encounter Discharge Instructions Eliana Salcedo FNP - 05/20/2020Please return to the ER if you have any increasing chest pain, fever, chills, nausea, vomiting, worsening shortness of breath, or any other symptom you feel is abnormal. Please follow up with your primary care doctor as soon as possible. Thank you. AttachmentsThe following attachments cannot be sent through Care Everywhere. Chest Pain, Uncertain Cause (Tristanian)Headaches, Self-Care for (Tristanian) documented in this encounter ED Notes Anabelle Roe RN - 05/20/2020 3:11 PM CDT65 year old female coming to the ER for fatigue, chest pain, headache. Patient reports notice her right arm swelling today in her right arm. Headache started yesterday, patient reports the chest pain described as crushing in the center of her chest onset 730 am to 740. Patient thinks she might be having a reaction after taking medication atorvastin, metformin, pantoprazole today. documented in this encounter Miscellaneous Notes ED Nurse Note - Halley Traore RN - 05/20/2020 6:26 PM CDTPatient provided Discharge instructions, AVS, Return precautions, and told to follow-up with PCP. Patient ambulated out of ED in no acute distress. documented in this encounter Plan of Treatment Name Type Priority Associated Diagnoses Date/Ti me Chest 1 View IMAGING STAT Chest pain, unspecified type 05/20/2020 3:55 PM CDT Health Maintenance Due Date Last Done Comments [...] Name Priority Date/Time Associated Diagnosis Comme nts URINALYSIS STAT 05/20/2020 4:59 PM Chest pain, Results for this CDT unspecified type procedure a re in the results section. XR CHEST 1 VW STAT 05/20/2020 3:55 PM Chest pain, CDT unspecified type Procedure Note - [facility], Radia nt Results Inft User - 05/20/2020 5:31 PM CDT EXAM: XR CHEST 1 VW HISTORY: chest pain COMPARISON: Chest x-ray date d 12/19/2018 TECHNIQUE: Single PA view radiograph of the chest. FINDINGS: The lungs are clear without evidence of focal consolidation, pleural effusion or pneumothorax. The heart slightly enlarged, unchanged. The aorta is slightly tortuous. No acute osseous abnormality is identified. IMPRESSION Stable mild cardiomegaly. Otherwise, no acute cardiopu lmonary abnormality. Preliminary Report Dictated by Resident: Sameer Dunham N-TERMINAL PRO-BNP STAT 05/20/2020 3:46 PM Chest pain, Re sults for this CDT unspecified type procedure a re in the results section. CBC WITH DIFF STAT 05/20/2020 3:46 PM Chest pain, Results for this CDT unspecified type procedure a re in the results section. BASIC METABOLIC STAT 05/20/2020 3:46 PM Chest pain, Resul ts for this PANEL (NA, K, CL, CDT unspecified type proced ure are in CO2, GLUCOSE, BUN, the resul ts CREATININE, CA) section. HEPATIC FUNCTION STAT 05/20/2020 3:46 PM Chest pain, Resu lts for this PANEL (77349) CDT unspecified type procedure are in (ALB,T.PRO,BILI the results T,BU/BC,ALT,AST,ALK section. PHOS) TROPONIN I STAT 05/20/2020 3:46 PM Chest pain, Results for this CDT unspecified type procedure a re in the results section. EKG-12 LEAD STAT 05/20/2020 3:22 PM CDT NOTICE OF PRIVACY Routine 05/20/2020 3:06 PM PRACTICES CDT documented in this encounter Results Urinalysis (05/20/2020 4:59 PM CDT) Pathologist Sig nature APPEARANCE Clear Clear [facility] COLOR Yellow Yellow [facility] PH 5.0 4.8 - 8.0 [facility] SP GRAVITY 1.017 1.003 - 1.030 [facility] GLU U QUAL Normal Normal [facility] BLOOD Negative Negative [facility] KETONES Negative Negative [facility] PROTEIN Negative Negative [facility] UROBILIN Normal Normal [facility] BILIRUBIN Negative Negative [facility] NITRITE Negative Negative [facility] LEUK YENNIFER Negative Negative [facility] RBC/HPF 2 0 - 3 HPF [facility] WBC/HPF <1 0 - 5 HPF [facility] BACTERIA Few (A) Negative [facility] MUCOUS Slight (A) Negative LPF [facility] SQ EPITH <1 HPF [facility] Specimen Urine - URINE, CLEAN CATCH Performing Organization Address [facility] Phone Number [facility] CLIA: [id number] [place] [address] N-TERMINAL PRO-BNP (05/20/2020 3:46 PM CDT) Pathologist Sig nature NT-proBNP 79 <=125 pg/mL [facility] Specimen Blood - VENOUS Narrative Performed At Biotin has been reported to cause a negative [facility] bias, interpret results relative to patient's use of biotin. Performing Organization Address [facility] Phone Number [facility] CLIA: [id number] [place] [address] Troponin I (05/20/2020 3:46 PM CDT) Pathologist Sig nature TROPONIN I <0.012 <=0.034 ng/mL [facility] Specimen Blood - VENOUS Narrative Performed At Equal or Less than 0.034 ng/ml---Normal [facility] Note: Cardiac troponin begins to rise 3-4 hours after the onset of ischemia. Repeat in 4-6 hours if the sample was drawn within 3-4 hours of the onset of the symptom and found normal. Between 0.035 and 0.120 ng/mL--- Borderline. Questionable myocardial injury or necros is Note: Serial measurement may be necessary to confirm or exclude the diagnosis of myocardial injury or necrosis; Clinical correlation (symptoms, EKGs, imaging studies, and others) required; Repeat in 4-6 hours if clinically indicated. Equal or Higher than 0.121 ng/mL---Abnormal. Myocardial Injury or Necrosis Likely Biotin has been reported to cause a negative bias, interpret results relative to patient's use of biotin. Performing Organization Address [facility] Phone Number [facility] CLIA: [id number] [place] [address] Hepatic Function Panel (ALB, T.PRO, BILI T, BU/BC, ALT, AST, ALK PHOS) (05/20/2020 3:46 PM CDT) Pathologist Sig nature TOTAL BILI 0.7 0.1 - 1.1 mg/dL [facility] BILI UNCON 0.6 0.1 - 1.1 mg/dL [facility] BILI CONJ 0.0 0.0 - 0.3 mg/dL [facility] T PROTEIN 7.1 6.3 - 8.2 g/dL [facility] ALBUMIN 4.3 3.5 - 5.0 g/dL [facility] ALK PHOS 69 34 - 122 U/L [facility] ALTv 21 5 - 35 U/L [facility] AST(SGOT) 25 13 - 40 U/L [facility] Specimen Blood - VENOUS Performing Organization Address City/State/Zipcode Phone Number [facility] CLIA: [id number] [place] [address] Basic Metabolic Panel (NA, K, CL, CO2, GLUCOSE, BUN, CREATININE, CA) (05/20/2020 3:46 PM CDT) Pathologist Sig nature NA 136 135 - 145 [facility] mmol/L [facility] K 4.3 3.5 - 5.0 [facility] mmol/L [facility] CL 101 98 - 108 mmol/L [facility] CO2 TOTAL 26 23 - 31 mmol/L [facility] AGAP 9 2 - 16 [facility] BUN 27 (H) 7 - 23 mg/dL [facility] GLUCOSE 109 70 - 110 mg/dL [facility] CREATININE 0.79 0.50 - 1.04 [facility] mg/dL [facility] CALCIUM 9.6 8.6 - 10.6 [facility] mg/dL [facility] eGFR Calculation 72.6 mL/min/1.73m2 [facility] (Non-) [facility] Y eGFR Calculation 88.0 mL/min/1.73m2 [facility] () [facility] Specimen Blood - VENOUS Narrative Performed At Association of Glomerular Filtration Rate (GFR) [facility] and Staging of Kidney Disease* + + +- + | GFR (mL/min/1.73 m2) | With Kidney Damage | Without Kidney Damage + + +- + | >90 | Stage one | Normal + + +- + | 60-89 | Stage two | Decreased GFR + + +- + | 30-59 | Stage three | Stage three + + +- + | 15-29 | Stage four | Stage four + + +- + | <15 (or dialysis) | Stage five | Stage five + + +- + *Each stage assumes the associated GFR level has been in effect for at least three months. Stages 1 to 5, with or without kidney disease, indicate chronic kidney disease. Notes: Determination of stages one and two (with eGFR >59mL/min/1.73 m2) requires estimation of kidney damage for at least three months as defined by structural or functional abnormalities of the kidney, manifested by either: Pathological abnormalities or Markers of kidney damage (including abnormalities in the composition of the blood or urine or abnormalities in imaging tests). Performing Organization Address City/State/Zipcode Phone Number [facility] CLIA: [id number] [place] [address] CBC with Differential (05/20/2020 3:46 PM CDT) [facility] WBC 7.32 4.30 - 11.10 [facility] 10*3/L [facility] RBC 4.09 3.93 - 5.25 [facility] 10*6/L [facility] HGB 12.1 11.6 - 15.0 [facility] g/dL [facility] HCT 34.8 (L) 35.7 - 45.2 % [facility] MCV 85.1 80.6 - 95.5 fL [facility] MCH 29.6 25.9 - 32.8 pg [facility] MCHC 34.8 31.6 - 35.1 [facility] g/dL [facility] RDW-SD 39.6 39.0 - 49.9 fL [facility] RDW-CV 12.8 12.0 - 15.5 % [facility] PLT 317 166 - 358 [facility] 10*3/L [facility] MPV 10.7 9.5 - 12.9 fL [facility] NRBC/100 WBC 0.0 0.0 - 10.0 /100 [facility] WBCs HOSPITAL [facility] NRBC x10^3 <0.01 10*3/L [facility] GRAN MAT (NEUT) % 61.4 % [facility] IMM GRAN % 0.40 % [facility] LYMPH % 28.3 % [facility] MONO % 5.6 % [facility] EOS % 3.8 % [facility] BASO % 0.5 % [facility] GRAN MAT x10^3(ANC) 4.49 1.88 - 7.09 [facility] 10*3/uL HOSPITAL [facility] IMM GRAN x10^3 0.03 0.00 - 0.06 [facility] 10*3/uL [facility] LYMPH x10^3 2.07 1.32 - 3.29 [facility] 10*3/uL [facility] MONO x10^3 0.41 0.33 - 0.92 [facility] 10*3/uL [facility]ITAL [facility] EOS x10^3 0.28 0.03 - 0.39 [facility] 10*3/uL [facility]ITAL [facility] BASO x10^3 0.04 0.01 - 0.07 [facility] 10*3/uL [facility] Specimen Blood - VENOUS Performing Organization Address City/State/Zipcode Phone Number [facility] CLIA: [id number] [place], [place] [id number] LAB[address] documented in this encounter Visit Diagnoses Diagnosis Atypical chest pain - Primary Other chest pain Chest pain, unspecified type Acute nonintractable headache, unspecifi ed headache type Essential hypertension Unspecified essential hypertension documented in this encounter Administered Medications Medication Order MAR Action Action Date Dose Rate Site aspirin tablet 325 mg Given 05/20/2020 3:56 PM CDT 325 mg 325 mg, Oral, ONCE, 1 dose, 05/20/20 at 1530, STAT documented in this encounter Insurance Payer Benefit Plan / Subscriber ID Effective Dates Phone Addre ss Type Group [id number] 2018-Present Medicare Adv spring HMO [address] (Home) [place], [place] [phone] (Work) documented as of this encounter"
--- OUTSIDE RECORDS SUMMARY | 2020-07-16 10:16 | XMS REPORT | Summary of Care ---
:1955 Author Organization [facility] - [facility] Address [address] [place], [place] [id number] Care Team Providers Name Role Phone MD Keo Primary Care Provider Reason for Referral Radiology Services (STAT) Status Reason Specialty Diagnoses / Referred By Referred To Procedures Contact Contact New Request Diagnostic Diagnoses Left elbow pain Lon Barragan, Radiology Procedures XR ELBOW >3 VW LEFT XR ELBOW <3 VW LEFT [address] [place] [address] [place] [id number] Reason for Visit Reason Comments Arm Pain left Auth/Cert Status Reason Specialty Diagnoses / Referred By Referred To Procedures Contact Contact Emergency Medicine Diagnoses ARM PAIN [facility] [address] [place] [address] Fax: Encounter Details Date Type Department Care Team Description 06/24/2020 Emergency [facility] Lon Barragan MD Left elbow pain (Primary Dx); Department [address] [place] [address] Bursitis of left elbow, unspecified burs a [address] [place] [address] [place] [address] [place] [address] [phone] Allergies No Known Allergiesdocumented as of this [...] Acute right-sided (scale 1-3). thoracic back pain predniSONE 20 mg Take 2 tablets by 10 tablet 0 06/24/2020 Active tabletIndications: mouth daily. Left elbow pain, Bursitis of left elbow, unspecified bursa documented as of this encounter (statuses as of 06/24/2020) Active Problems No known active problemsdocumented as of this encounter (statuses as of 06/24/2020) Social History Tobacco Use Types Packs/Day Years Used Date Never Assessed Sex Assigned at Date Recorded Not on file COVID-19 Exposure Response Date Recorded In the last month, have you been in contact with No / Unsure 06/24/2020 8:22 AM FRONT END TECHNICIAN someone who was confirmed or suspected to have Coronavirus / COVID-19? documented as of this encounter Last Filed Vital Signs Vital Sign Reading Time Taken Comments Blood Pressure 135/97 06/24/2020 8:26 AM FRONT END TECHNICIAN Pulse 80 06/24/2020 8:26 AM FRONT END TECHNICIAN Temperature 37.4 C (99.4 F) 06/24/2020 8:26 AM FRONT END TECHNICIAN Respiratory Rate 17 06/24/2020 8:26 AM FRONT END TECHNICIAN Oxygen Saturation 97% 06/24/2020 8:26 AM FRONT END TECHNICIAN Inhaled Oxygen Concentration - - Weight 101.2 kg (223 lb) 06/24/2020 8:26 AM FRONT END TECHNICIAN Height 154.9 cm (5' 1") 06/24/2020 8:26 AM FRONT END TECHNICIAN Body Mass Index 42.14 06/24/2020 8:26 AM FRONT END TECHNICIAN documented in this encounter Discharge Instructions InstructionsLon Barragan MD - 06/24/2020 RETURN FOR ANY QUESTIONS OR CONCERNS Today you were seen by Lon Barragan Jr., MD You were seen today for Chief Complaint Patient presents with Arm Pain left Your ER diagnosis was ICD-10-CM ICD-9-CM 1. Left elbow pain M25.522 719.42 2. Bursitis of left elbow, unspecified bursa M70.32 726.33 NO LIFE-THREATENING FINDINGS ON TODAY'S EXAM. YOUR PRESCRIPTIONS : Check out [employer] for medication discounts Medication List ASK your doctor about these medications acetaminophen-codeine 300-30 mg tablet Commonly known as: Tylenol-Codeine #3 Take 1 tablet by mouth every 4 (four) hours as needed for Pain (scale 1-3). diazePAM 5 mg tablet Commonly known as: Valium Take 1 tablet by mouth 3 (three) times daily as needed for Muscle Spasms. ER precautions and follow up : 1. Return to ER if your symptoms should worsen or fail to improve within 72 hours. 2. The care provided in the emergency room was for acute problems only. 3. You should follow up with your primary care provider within 72 hours. 4. Fill and take all your medications as prescribed. 5. Make sure you are staying adequately hydrated. Busque attencion immediatamente si usted tiene los sitomas sigue, vuelve peor o si hay sitomas nuevas o para cualquiera preoccupacion incluyendo dolor del pecho, falta aire, se siente debile, mas fievre, mas dolor, nausea, vomitando, sangrando que no es normal, confusion, baja or pierdas conciencia. MAY FOLLOW-UP WITH A PROVIDER OF YOUR CHOICE, SUCH : 1. A PHYSICIAN OF YOUR CHOICE 2. [facility], . LOCATIONS IN [facility] 3. [facility], [address] [place] [address]; [phone] OR, IF YOU WISH TO FOLLOW-UP WITHIN THE [facility], MAY TRY THESE OPTIONS (CLINIC APPOINTMENTS AVAILABLE ON OCFE-LR-AQUL BASIS): 1. SCHEDULE AN APPOINTMENT ONLINE AT WWW[facility] 2. OR CALL THE [facility] ACCESS CENTER AT OR 3. OR CALL YOUR [facility] PHYSICIAN'S OFFICE DIRECTLY IF YOU ARE ALREADY AN ESTABLISHED [facility] PATIENT. [facility] RETURN TO WORK / SCHOOL EXCUSE Sintia Garcia WAS SEEN IN THE ER AND DISCHARGED 06/24/2020 TODAY, 10:50 AM & May return to Work / School / Incarceration on X with activity as tolerated indicated below. ___The following limitations apply until pt is seen by Physician and cleared to return to normal activity. _X_ Off for two days and return to activity as tolerated at work or school ___ No Sports ___ No work ___ Do not return until fever free for 24 hours. ___ No school LON BARRAGAN Jr., MD [facility] [address] [place] [address] [address]. V[place] PORTER [id number] ### The patient may have been given Narcotic pain medications during their stay in the ED that may show up on a Drug Screen. The hospital discharge paper work will identify these medications. AttachmentsThe following attachments cannot be sent through Care Everywhere. Bursitis (Welsh)documented in this encounter ED Notes Suha Fonseca RN - 06/24/2020 8:20 AM CSTPatient came in with complaints of nontraumatic left arm pain just above the elbow since 3 weeks. Patient said she's supposed to have a CT scan of her left arm on Wednesday but she cannot tolerate the pain anymore today. Patient a&ox4 upon arrival. Lon Santo MD - 06/24/2020 8:16 AM CST EMERGENCY DEPARTMENT ENCOUNTER [facility] Patient Name: Sintia Garcia Date of : 1955 65 year old Exam Room:Room/bed info not found Primary Care Physician: Subhash Crowley Pre- Hospital Patient Escorted by: Self [9] Mode of Arrival: Personal means [1] EMS Treatment Prior to ED Arrival: [employer] treatment: None Chief Complaint Chief Complaint Patient presents with Arm Pain left HPI History provided by: Patient Upper Extremity Issue Location: Elbow Elbow location: L elbow Injury: no Pain details: Quality: Aching, cramping and throbbing Radiates to: Does not radiate Severity: Severe Onset quality: Gradual Duration: 3 weeks Timing: Constant Progression: Worsening Handedness: Right-handed Dislocation: no Prior injury to area: No Relieved by: Rest Worsened by: Movement Ineffective treatments: gabapentin and muscle relaxants. Associated symptoms: stiffness and swelling Associated symptoms: no back pain and no numbness Risk factors: no concern for non-accidental trauma and no known bone disorder Past Medical History / Immunizations History reviewed. No pertinent past medical history. Tetanus received in last 5 years: Yes Past Surgical History Past Surgical History: Procedure Laterality Date CHOLECYSTECTOMY HYSTERECTOMY Allergies No Known Allergies Social History Substance & Sexual Activity No substance use or sexual activity history on file. Review of Systems Review of Systems Constitutional: Negative. Negative for chills and unexpected weight change. HENT: Negative. Eyes: Negative. Negative for discharge and itching. Respiratory: Negative. Negative for chest tightness and wheezing. Gastrointestinal: Negative. Negative for abdominal distention. Genitourinary: Negative. Negative for dysuria, urgency, frequency and flank pain. Musculoskeletal: Positive for stiffness. Negative for back pain. Left elbow pain Skin: Negative. Negative for color change, pallor and wound. Neurological: Negative for syncope and light-headedness. Psychiatric/Behavioral: Negative. Negative for agitation and behavioral problems. All other systems reviewed and are negative. Endocrine: Endocrine negative Physical Exam BP (!) 135/97 | Pulse 80 | Temp 37.4 C (99.4 F) (Oral) | Resp 17 | Ht 1.549 m (5' 1") | Wt 101.2 kg (223 lb) | SpO2 97% | BMI 42.14 kg/m Physical Exam Vitals signs reviewed. Constitutional: Appearance: She is well-developed. She is obese. HENT: Head: Normocephalic and atraumatic. Nose: Nose normal. Eyes: Conjunctiva/sclera: Conjunctivae normal. Neck: Musculoskeletal: Normal range of motion and neck supple. Trachea: No tracheal deviation. Cardiovascular: Rate and Rhythm: Normal rate and regular rhythm. Heart sounds: Normal heart sounds. No murmur. No friction rub. Pulmonary: Effort: Pulmonary effort is normal. No respiratory distress. Breath sounds: Normal breath sounds. No stridor. No wheezing or rales. Abdominal: General: Bowel sounds are normal. There is no distension. Palpations: Abdomen is soft. Tenderness: There is no abdominal tenderness. There is no guarding or rebound. Musculoskeletal: General: Swelling present. Right shoulder: She exhibits decreased range of motion, tenderness, swelling and pain. Arms: Skin: General: Skin is warm and dry. Neurological: Mental Status: She is alert and oriented to person, place, and time. Cranial Nerves: No cranial nerve deficit. Sensory: No sensory deficit. Psychiatric: Behavior: Behavior normal. Thought Content: Thought content normal. Judgment: Judgment normal. Labs No results found for this or any previous visit (from the past 24 hour(s)). Imaging Hospital Encounter on 06/24/20 XR ELBOW >3 VW LEFT Narrative Ordering Physician: LON BARRAGAN. Procedure: XR ELBOW >3 VW LEFT Comparison: None. History: medial condyle pain . Findings: There is a lucency noted on the AP view overlapping the proximal ulna which appears to extend external to the bone consistent with skin fold. No fracture, dislocation, effusion, or arthritis is seen. Projecting in the posterior subcutaneous soft tissues is a 9 mm density which may be related to dystrophic calcification versus phlebolith. Impression Impression: No acute bony abnormality identified. Small calcification in the posterior proximal soft tissues of the forearm. End of Report. RL: 5500 Orders and Treatments Orders Placed This Encounter Procedures XR ELBOW >3 VW LEFT Orders Placed This Encounter Medications predniSONE 20 mg tablet HYDROcodone-acetaminophen (NORCO 5) 5-325 mg tablet 1 tablet Procedures See ED Procedure Note Notes & MDM Patient was evaluated for an emergency medical condition related to Arm Pain (left) . Differential diagnoses considered by presenting complaints but not limited to: Bursitis Medial Epicondylitis Ostearthritis Assessment: Placed patient in digna wrap and sling. Appears to be aseptic bursitis. Will send home on steroids andhydrocodone. Pt to return for any questions or concerns. The patient is scheduled to get advance imaging by CT this upcoming Wednesday. History, physical exam findings, results of visit, differential diagnosis, medication regimens and plan of future care have been considered. Additional MDM may be found in the ED course. Differential diagnosis considered and final disposition made based on information gathered during evaluation and may not be completely ruled out or specifically listed. Vital signs were rechecked before final disposition. Diagnosis ICD-10-CM ICD-9-CM 1. Left elbow pain M25.522 719.42 2. Bursitis of left elbow, unspecified bursa M70.32 726.33 Disposition & Follow Up ED Disposition ED Disposition Condition Comment Disch - Home Stable Patient's Medications START taking these medications PREDNISONE 20 MG TABLET Take 2 tablets by mouth daily. CONTINUE taking these medications which have NOT CHANGED ACETAMINOPHEN-CODEINE (TYLENOL-CODEINE #3) 300-30 MG TABLET Take 1 tablet by mouth every 4 (four) hours as needed for Pain (scale 1-3). DIAZEPAM (VALIUM) 5 MG TABLET Take 1 tablet by mouth 3 (three) times daily as needed for Muscle Spasms. START taking Modified Medications as Prescribed No medications on file STOP taking these medications No medications on file Lon Barragan Jr., MD Clinical Clinical Leader [facility] Emergency Department T END TECHNICIAN documented in this encounter Miscellaneous Notes ED Nurse Note - Maryam Warren, RN - 06/24/2020 11:04 AM CSTPt discharged with diagnosis of bursitis of left elbow. Printed and verbal instructions reviewed with and given to patient. Prescriptions given x2. Pt verbalized understanding of teaching, medications,and recommended follow-up. Denies questions or concerns at this time. Pt ambulatory at discharge, appears in no apparent distress, no ataxia noted. to transport patient home. T END TECHNICIAN documented in this encounter Plan of Treatment Date Type Specialty Care Team Description 07/03/2020 Appointment Radiology Radiology [address] [place] [id number] Health Maintenance Due Date Last Done Comments [...] Name Priority Date/Time Associated Diagnosis Comme nts XR ELBOW >3 VW STAT 06/24/2020 9:18 AM Left elbow pain Re sults for this LEFT FRONT END TECHNICIAN procedure are i n the results section. NOTICE OF PRIVACY Routine 06/24/2020 8:15 AM PRACTICES FRONT END TECHNICIAN documented in this encounter Results XR ELBOW >3 VW LEFT (06/24/2020 9:18 AM FRONT END TECHNICIAN) Specimen Impressions Performed At Impression: PACS/VR/DOSE No acute bony abnormality identified. Small calcification in the posterior proximal soft tis sues of the forearm. End of Report. RL: 5500 Electronically signed by Umm Floyd MD at 0 10:18 AM Narrative Performed At Ordering Physician: LON BARRAGAN. PACS/VR/DOSE Procedure: XR ELBOW >3 VW LEFT Comparison: None. History: medial condyle pain . Findings: There is a lucency noted on the AP view overlapping th e proximal ulna which appears to extend external to the bone c onsistent with skin fold. No fracture, dislocation, effusion, or a rthritis is seen. Projecting in the posterior subcutaneous soft tissues is a 9 mm density which may be related to dystrophic calci fication versus phlebolith. Procedure Note [facility], Radiant Results Inft User - 2019 10:40 AM FRONT END TECHNICIAN Ordering Physician: LON BARRAGAN. Procedure: XR ELBOW >3 VW LEFT Comparison: None. History: medial condyle pain . Findings: There is a lucency noted on the AP view overlapping the proximal ulna which appears to extend external to the bone c onsistent with skin fold. No fracture, dislocation, effusion, or a rthritis is seen. Projecting in the posterior subcutaneous soft tissues is a 9 mm density which may be related to dystrophic calci fication versus phlebolith. IMPRESSION Impression: No acute bony abnormality identified. Small calcification in the posterior pro ximal soft tissues of the forearm. End of Report. RL: 5500 Performing Organization Address City/State/Zipcode Phone Number PACS/VR/DOSE documented in this encounter Visit Diagnoses Diagnosis Left elbow pain - Primary Pain in joint, upper arm Bursitis of left elbow, unspecified burs a documented in this encounter Administered Medications Medication Order MAR Action Action Date Dose Rate Site HYDROcodone-acetaminophen Given 06/24/2020 10:59 AM FRONT END TECHNICIAN 1 tablet (NORCO 5) 5-325 mg tablet 1 tablet 1 tablet, Oral, ONCE, 1 dose, 06/24/20 at 1200, MARTHA documented in this encounter Insurance Payer Benefit Plan / Subscriber ID Effective Dates Phone Addre ss Type Group [employer] [id number] 2018-Present Medicare Adv spring HMO [address] (Home) [place], [place] [phone] (Work) documented as of this encounter
[2020-07-16] MEDS ORDERED: MORPHINE 4 MG/ML SYR ONE (10:56)
[2020-07-16] MEDS ORDERED: ONDANSETRON 4 MG/2 ML VIAL ONE (10:56)
[2020-07-16 11:00] LABS: Absolute Lymphocytes (CBC) 1.9 K/uL (0.7-4.9); Basophils % 0.9 % (0-1.3); Hematocrit 38.2 % (36.0-45.0); Lymphocytes % 32.7 % (15.3-44.8); MPV 8.9 fL (7.6-11.3); RBC Red Blood Cell Count 4.45 M/uL (3.86-4.86)
[2020-07-16 11:02] LABS: Protime INR 0.91
--- NOTE | 2020-07-16 11:08 | RAD REPORT ---
EXAM DESCRIPTION: RAD - Chest Single View - 07/16/2020 10:33 am CLINICAL HISTORY: shortness of breath, headache, COVID positive COMPARISON: July 12 TECHNIQUE: AP portable chest image was obtained 07/16/2020 10:33 am . FINDINGS: No dense mass or consolidation. Large body habitus and under penetrated portable technique increase lung base opacification. Patchy ground-glass opacification in the right lung field is still evident. No progressive process since July 12. Heart and vasculature are normal. No measurable pleural effusion and no pneumothorax. No acute bony abnormality seen. No acute aortic findings suspected. IMPRESSION: Patchy lung base opacification not substantially different from July 12. No progress mika lung finding.
[2020-07-16 11:17] LABS: ALT/SGPT 26 U/L (12-78); AST/SGOT 15 U/L (15-37); Albumin 3.9 g/dL (3.4-5.0); Alkaline Phosphatase 82 U/L (45-117); BUN Blood Urea Nitrogen 20 mg/dL (7-18); Bicarbonate 27 mmol/L (21-32); Bilirubin Direct < 0.1 mg/dL (0-0.2); Bilirubin Total 0.5 mg/dL (0.2-1.0); Glucose Level 115 mg/dL (74-106); Magnesium 2.3 mg/dL (1.8-2.4); NT PRO-BNP 109 pg/mL (<125); Potassium 4.1 mmol/L (3.5-5.1); Protein, Total 7.2 g/dL (6.4-8.2); Sodium Level 141 mmol/L (136-145); Troponin (Emerg Dept Use Only) < 0.02 ng/mL (0.0-0.045)
[2020-07-16] MEDS ORDERED: dexAMETHasone 10 MG/ML VIAL ONE (11:52)
--- NOTE | 2020-07-16 12:09 | RAD REPORT ---
EXAM DESCRIPTION: CT - Chest For Pe Angio - 07/16/2020 11:53 am CLINICAL HISTORY: shortness of breath, positive COVID test COMPARISON: No comparisons TECHNIQUE: Dynamically enhanced 3 mm thick images of the chest were obtained during administration o f approximately 150mL Isovue 370 IV contrast. Coronal and oblique MIP reconstruction images were gene rated and reviewed. Exam utilizes a protocol to evaluate the pulmonary arterial tree. All CT scans are performed using dose optimization technique as appropriate and may include automated exposure control or mA/KV adjustment according to patient size. FINDINGS: No pulmonary emboli are identified. The aorta as imaged shows no acute or suspicious finding. No pericardial thickening or effusion. Ground-glass opacification present in the mid and lower lung osuna in a peripheral distribution. No endobronchial lesion. No large consolidation or mass lesion identifiable. No pleural effusion or pleu ral thickening. No mediastinal abnormal mass or lymphadenopathy. Patient has a few reactive type mediastinal and evelin r lymph nodes. No chest wall masses or abnormal axillary lymphadenopathy. IMPRESSION: No pulmonary emboli identified. Bilateral ground-glass opacification pattern consistent with a mild to moderate COVID-19 pneumonia.
--- NOTE | 2020-07-16 12:49 | ER ---
Nurse's Notes [facility] Name: Sintia Garcia Age: 65 yrs Sex: Female : 1955 Arrival Date: 07/16/2020 Time: 09:58 Bed 20 Private MD: Ortega Tuttle E Diagnosis: Coronavirus infection, unspecified Presentation: 07/16 10:10 Chief complaint: Patient states: was seen at [facility] to r/o [place] in the end of em Nov., was supposed to have a cardiac cath. yesterday but was tested for covid preop on Wednesday07/12/20 and tested positive, pt had no symptoms, now has developed ZEE, shortness of breath and chest pressure, denies fever. Coronavirus screen: Client reports previous positive COVID test result. Date of collection: July 12, 2020. Ebola Screen: Patient negative for fever greater than or equal to 101.5 degrees Fahrenheit, and additional compatible Ebola Virus Disease symptoms Patient denies exposure to infectious person. Patient denies travel to an Ebola-affected area in the 21 days before illness onset. No symptoms or risks identified at this time. Initial Sepsis Screen: Does the patient meet any 2 criteria? No. Patient's initial sepsis screen is negative. Does the patient have a suspected source of infection? No. Patient's initial sepsis screen is negative. Risk Assessment: Do you want to hurt yourself or someone else? Patient reports no desire to harm self or others. Onset of symptoms was July 15, 2020. 10:10 Method Of Arrival: Ambulatory em 10:10 Acuity: SALOMON 3 em Historical: - Allergies: 10:13 No Known Allergies; em - PMHx: 10:13 GERD; High Cholesterol; Hyperlipidemia; em - PSHx: 10:13 Cholecystectomy; Hysterectomy; FOOT SX; Carpal Tunnel Repair; em - Immunization history:: Adult Immunizations up to date. - Social history:: Smoking status: Patient denies any tobacco usage or history of. Screenin:14 Abuse screen: Denies threats or abuse. Nutritional screening: No deficits noted. em Tuberculosis screening: No symptoms or risk factors identified. Fall Risk None identified. Assessment: 10:05 General: Appears in no apparent distress. uncomfortable, obese, Behavior is em cooperative, anxious, Denies fever. Pain: Complains of pain in right lateral anterior chest Pain currently is 8 out of 10 on a pain scale. Neuro: Level of Consciousness is awake, alert, obeys commands, Oriented to person, place, time, situation, Appropriate for age Reports headache. Cardiovascular: Reports chest pain, Capillary refill < 3 seconds Patient's skin is warm and dry. Rhythm is sinus rhythm. Respiratory: Airway is patent Respiratory effort is even, unlabored, Respiratory pattern is regular, symmetrical, Breath sounds are clear bilaterally. GI: Abdomen is round non-distended, Reports nausea, vomiting. Derm: Skin is intact, is fragile, is thin. Musculoskeletal: Capillary refill < 3 seconds, Range of motion: intact in all extremities. 10:42 Reassessment: pt reports crushing chest pain, received VO from REBA Laureano to give 4 mg em morphine IVP x 1 and 4 mg zofran IVP x 1. 11:35 Reassessment: Patient appears in no apparent distress at this time. Patient and/or em family updated on plan of care and expected duration. Pain level reassessed. Patient is alert, oriented x 3, equal unlabored respirations, skin warm/dry/pink. Patient denies pain at this time. Patient states feeling better. Patient states symptoms have improved. 11:46 Reassessment: wheeled to CT via stretcher. em 12:45 Reassessment: Patient appears in no apparent distress at this time. Patient and/or em family updated on plan of care and expected duration. Pain level reassessed. Patient is alert, oriented x 3, equal unlabored respirations, skin warm/dry/pink. Vital Signs: 10:10 BP 134 / 93; Pulse 84; Resp 18; Temp 98.6; Pulse Ox 98% on R/A; Pain 8/10; em 11:00 BP 129 / 75; Pulse 64; Resp 18; Pulse Ox 99% on R/A; em ED Course: 09:58 Patient arrived in ED. rg4 09:59 Ortega Tuttle MD is Private Physician. rg4 10:03 Murphy Argueta, RN is Primary Nurse. em 10:07 Georgi Najera [facility] is [facility] m 10:07 Gerardo Damico MD is Attending Physician. [facility] 10:13 Triage completed. em 10:13 Arm band placed on. em 10:14 Patient has correct armband on for positive identification. Placed in gown. Bed in low em position. Call light in reach. Side rails up X2. Pulse ox on. NIBP on. 10:34 XRAY Chest (1 view) In Process Unspecified. EDMS 10:35 Initial lab(s) drawn, by me, sent to lab. Inserted saline lock: 22 gauge in right em antecubital area, using aseptic technique. Blood collected. 10:47 satellite project site monitor on. Pulse ox on. NIBP on. 5 10:47 EKG done, by ED staff, reviewed by Gerardo Damico MD. [facility] 11:52 CT Chest For PE Angio In Process Unspecified. EDMS 13:18 No provider procedures requiring assistance completed. IV discontinued, intact, em bleeding controlled, No redness/swelling at site. Pressure dressing applied. Administered Medications: 10:45 Drug: Zofran (Ondansetron) 4 mg Route: IVP; Site: right antecubital; em 11:41 Follow up: Response: No adverse reaction em 10:47 Drug: morphine 4 mg Route: IVP; Site: right antecubital; em 11:41 Follow up: Response: No adverse reaction; Marked relief of symptoms; Pain is decreased; em RASS: Alert and Calm (0) 11:41 Drug: Decadron - Dexamethasone 10 mg Route: IVP; Site: right antecubital; em Outcome: 12:48 Discharge ordered by . deanna 13:18 Discharged to home ambulatory. em 13:18 Condition: stable 13:18 Discharge instructions given to patient, Instructed on discharge instructions, follow up and referral plans. medication usage, Demonstrated understanding of instructions, follow-up care, medications, Prescriptions given X 2. 13:20 Patient left the ED. em Signatures: Dispatcher [employer] EDMS Georgi Najera PA PA jmm Munoz, Edgar, GRACIELA RN em Adriana Soares Maria [facility] Corrections: (The following items were deleted from the chart) 10:15 10:10 Chief complaint: Patient states: was seen at [facility] to [place]/o [place], was em supposed to have a cardiac cath. yesterday but was tested for covid preop on Wednesday07/12/20 and tested positive, pt had no symptoms, now has developed ZEE, shortness of breath and chest pressure, denies fever em
--- NOTE | 2020-07-16 12:49 | EDPHYS ---
Physician Documentation [facility] Name: Sintia Garcia Age: 65 yrs Sex: Female : 1955 Arrival Date: 07/16/2020 Time: 09:58 Bed 20 Private MD: Ortega Tuttle E ED Physician Gerardo Damico HPI: 07/16 10:19 This 65 yrs old Female presents to ER via Ambulatory with complaints of jmm Breathing Difficulty, Headache, Covid+. 10:19 The patient has shortness of breath at rest. Onset: The symptoms/episode began/occurred jmm gradually, 1 week(s) ago. Duration: The symptoms are continuous. The patient's shortness of breath is aggravated by nothing, is alleviated by nothing. This is a 65 year old female with a history of GERD, HLP, that presents to the ED with complaints of shortness of breath right sided chest pain. Patient states she was confirmed positive for COVID this past Wednesday. States she was also positive last month as well. Also complains of headache and generalized body aches. . Historical: - Allergies: 10:13 No Known Allergies; em - PMHx: 10:13 GERD; High Cholesterol; Hyperlipidemia; em - PSHx: 10:13 Cholecystectomy; Hysterectomy; FOOT SX; Carpal Tunnel Repair; em - Immunization history:: Adult Immunizations up to date. - Social history:: Smoking status: Patient denies any tobacco usage or history of. ROS: 10:19 Constitutional: Positive for body aches, fatigue. jmm 10:19 Respiratory: Positive for cough, shortness of breath. 10:19 Neuro: Positive for headache. 10:19 All other systems are negative. Exam: 10:19 Constitutional: This is a well developed, well nourished patient who is awake, alert, jmm and in no acute distress. Head/Face: atraumatic. Eyes: EOMI, no conjunctival erythema appreciated ENT: Moist Mucus Membranes Neck: Trachea midline, Supple Chest/axilla: Normal chest wall appearance and motion. Cardiovascular: Regular rate and rhythm. No edema appreciated Respiratory: Normal respirations, no respiratory distress appreciated Abdomen/GI: Non distended, soft Back: Normal ROM Skin: General appearance color normal MS/ Extremity: Moves all extremities, no obvious deformities appreciated, no edema noted to the lower extremities Neuro: Awake and alert, normal gait Psych: Behavior is normal, Mood is normal, Patient is cooperative and pleasant Vital Signs: 10:10 BP 134 / 93; Pulse 84; Resp 18; Temp 98.6; Pulse Ox 98% on R/A; Pain 8/10; em 11:00 BP 129 / 75; Pulse 64; Resp 18; Pulse Ox 99% on R/A; em MDM: 10:07 Patient medically screened. tomasa 12:45 Data reviewed: vital signs, nurses notes. Counseling: I had a detailed discussion with deanna the patient and/or guardian regarding: the historical points, exam findings, and any diagnostic results supporting the discharge/admit diagnosis, lab results, radiology results, the need for outpatient follow up, to return to the emergency department if symptoms worsen or persist or if there are any questions or concerns that arise at home. ED course: Patient is alert and non toxic in appearance in the ED. Patient is advised to follow up with pcp and otherwise given strict return precautions. . 07/16 10:18 Order name: Basic Metabolic Panel; Complete Time: 11: [facility] 07/16 10:18 Order name: CBC with Diff; Complete Time: 11: [facility] 07/16 10:18 Order name: LFT's; Complete Time: : [facility] 07/16 10:18 Order name: Magnesium; Complete Time: : [facility] 07/16 10:18 Order name: NT PRO-BNP; Complete Time: 11: [facility] 07/16 10:18 Order name: PT-INR; Complete Time: 11: [facility] 07/16 10:18 Order name: Troponin (emerg Dept Use Only); Complete Time: 11: [facility] 07/16 10:18 Order name: XRAY Chest (1 view); Complete Time: 11:10 [facility] 07/16 10:18 Order name: D-Dimer; Complete Time: 11: [facility] 07/16 10:18 Order name: Lactate; Complete Time: 11: [facility] 07/16 10:18 Order name: Blood Culture Adult (2) [facility] 07/16 10:18 Order name: Procalcitonin; Complete Time: 12: [facility] 07/16 11:33 Order name: CT Chest For PE Angio; Complete Time: 12: [facility] 12/15 10:18 Order name: EKG; Complete Time: 10:19 [facility] 07/16 10:18 Order name: Cardiac monitoring; Complete Time: 10:18 [facility] 07/16 10:18 Order name: EKG - Nurse/Tech; Complete Time: 10:47 [facility] 07/16 10:18 Order name: IV Saline Lock; Complete Time: 10:50 [facility] 07/16 10:18 Order name: Labs collected and sent; Complete Time: 10:19 [facility] 07/16 10:18 Order name: O2 Per Protocol; Complete Time: 10:19 [facility] 07/16 10:18 Order name: O2 Sat Monitoring; Complete Time: 10:19 [facility] Administered Medications: 10:45 Drug: Zofran (Ondansetron) 4 mg Route: IVP; Site: right antecubital; em 11:41 Follow up: Response: No adverse reaction em 10:47 Drug: morphine 4 mg Route: IVP; Site: right antecubital; em 11:41 Follow up: Response: No adverse reaction; Marked relief of symptoms; Pain is decreased; em RASS: Alert and Calm (0) 11:41 Drug: Decadron - Dexamethasone 10 mg Route: IVP; Site: right antecubital; em Disposition: 07/17 11:50 Co-signature as Attending Physician, eGrardo Damico MD I agree with the assessment and tomasa plan of care. Disposition: 07/16/20 12:48 Discharged to Home. Impression: Coronavirus infection, unspecified. - Condition is Stable. - Discharge Instructions: COVID-19. - Prescriptions for Zithromax Z- Enoc 250 mg Oral Tablet - take 1 tablet by ORAL route as directed for 5 days Day 1 - take two (2) tablets one time. Day 2, 3, 4 , 5 take one (1) tablet once daily.; 6 tablet. orphenadrine citrate 100 mg Oral Tablet Sustained Release - take 1 tablet by ORAL route 2 times per day As needed; 20 tablet. - Medication Reconciliation Form, Thank You Letter, Antibiotic Education, Prescription Opioid Use form. - Follow up: Private Physician; When: 2 - 3 days; Reason: Recheck today's complaints, Continuance of care, Re-evaluation by your physician. Signatures: Dispatcher [employer] EDMS Mookie, Gerardo, MD MD tomasa Mickail, Georgi, PA PA jmm Argueta, Murphy, RN RN em Corrections: (The following items were deleted from the chart) 07/16 13:20 12:48 07/16/2020 12:48 Discharged to Home. Impression: Coronavirus infection, em unspecified. Condition is Stable. Forms are Medication Reconciliation Form, Thank You Letter, Antibiotic Education, Prescription Opioid Use. Follow up: Private Physician; When: 2 - 3 days; Reason: Recheck today's complaints, Continuance of care, Re-evaluation by your physician. deanna
--- NOTE | 2020-07-16 19:32 | EKG ---
Test Date: 2020-07-16 Test Time: 10:34:[address] Registrar: KELLY MEASUREMENT RESULTS: Intervals: Rate: 69 IN: 140 QRSD: 72 QT: 394 QTc: 422 Hutto: P: 45 IN: 140 QRS: 44 T: 55 INTERPRETIVE STATEMENTS: Normal sinus rhythm Low voltage QRS Borderline ECG Compared to ECG 09/23/2017 13:56:08 Low QRS voltage now present Sinus tachycardia no longer present Electronically Signed On 07-16-20 19:32:17 [employer] REPAIRER by Jose Torres
[2020-07-18 16:56] VITALS: TEMP 98.6
[2020-07-18 16:57] VITALS: BP 129/75; O2SAT 99
== END 2020-07-16 13:20 | disposition home or self-care (01) ==
LOC: ER 09:56
DX: U07.1 COVID-19 (principal); R51.9 Headache, unspecified
CPT/HCPCS: 93005; 87040 ×2; 85025; 80048; 36415; 83735; 85610; 85379; 80076; 83605; 84484; 84145; 83880; 71275; 71045; Q9967; J1100; J2405; 96374; 96375; 99284

== ENCOUNTER 2020-07-28 10:44 | Emergency (ER) | payer OTHER ==
--- OUTSIDE RECORDS SUMMARY | 2020-07-28 10:46 | XMS REPORT | Continuity of Care Document ---
:1955 Author Organization [facility] t Address [address] [place] [address] Care Team Providers Name Role Phone Lawson PINEDA Attending Clinician Doctor Unassigned, Name Attending Clinician Unavailable Moshe GONZALEZ Attending Clinician Problems Condition Condition Condition Status Onset Resolution Last Treating Co mments Source Name Details Category Date Date Treatment Clinician Date Sciatica Sciatica Problem [facility] Piriformis Piriformis Problem Active [facility] syndrome syndrome [facility] Allergies, Adverse Reactions, Alerts This patient has no known allergies or adverse reactions. Medications Ordered Filled Start Stop Current Ordering Indication Dosage Frequency Signature Comments Components Source Medication Medication Date Date Medication? Clinician (SIG) Name Name Pantoprazol Pantoprazol Yes Neo [address] [facility] Sodium e Sodium 11-10 [facility] - [facility] Cyclobenzap Cyclobenzap 2018- Yes Neo [address] rine HCl rine HCl 11-10 [facility] as needed Sherita kes - 00:00: [facility] 00 [facility] Medrol Medrol Yes Neo as [facility] 4[facility]11 [facility] - [facility]: [facility] 00 [facility] Clin[facility] Procedures This patient has no known procedures. Encounters Start End Encounter Admission Attending Care Care Encounter Source Date/Time Date/Time Type Type Clinicians Facility Department ID 2020-06-24 2020-06-24 Emergency [place], [facility] [id number] 08:28:00 11:05:00 [place] [id number] [place] [id number] [place] [id number] 2020-06-24 2020-06-24 Orders Doctor RERE [id number] 00:00:00 00:00:00 Only Unassigned, [place] [id number] [place] [id number] 2020-05-20 2020-05-20 Emergency [place], [facility] [id number] 15:19:00 18:28:00 [place] [id number] [place] [id number] [place] [id number] 2020-05-20 2020-05-20 Orders Doctor JERNIGAN [id number] 00:00:00 00:00:00 Only Unassigned, [place] [id number] 2018-11-11 2018-11-11 [facility] [id number] 11:12:00 11:12:00 [facility] 2018-11-10 2018-11-10 [facility] [id number] 10:30:00 10:30:00 [facility] Clin[facility] Results This patient has no known results.
[2020-07-28 14:08] LABS: Absolute Lymphocytes (CBC) 2.3 K/uL (0.7-4.9); Basophils % 0.9 % (0-1.3); Hematocrit 37.8 % (36.0-45.0); Lymphocytes % 32.9 % (15.3-44.8); MPV 8.8 fL (7.6-11.3); Protime INR 0.85; RBC Red Blood Cell Count 4.29 M/uL (3.86-4.86)
[2020-07-28 14:24] LABS: ALT/SGPT 19 U/L (12-78); AST/SGOT 13 U/L (15-37); Albumin 3.9 g/dL (3.4-5.0); Alkaline Phosphatase 81 U/L (45-117); BUN Blood Urea Nitrogen 23 mg/dL (7-18); Bicarbonate 28 mmol/L (21-32); Bilirubin Direct 0.1 mg/dL (0-0.2); Bilirubin Total 0.4 mg/dL (0.2-1.0); Glucose Level 100 mg/dL (74-106); Magnesium 2.2 mg/dL (1.8-2.4); NT PRO-BNP 110 pg/mL (<125); Potassium 4.3 mmol/L (3.5-5.1); Protein, Total 7.5 g/dL (6.4-8.2); Sodium Level 141 mmol/L (136-145); Troponin (Emerg Dept Use Only) < 0.02 ng/mL (0.0-0.045)
--- NOTE | 2020-07-28 15:01 | RAD REPORT ---
EXAM DESCRIPTION: RAD - Chest Single View - 07/28/2020 2:21 pm CLINICAL HISTORY: right flank painpositive COVID test July 11 COMPARISON: Portable July 16 TECHNIQUE: AP portable chest image was obtained 07/28/2020 2:21 pm . FINDINGS: No new mass or consolidation. Lung volumes are low. Patient is in a lordotic position. No specific findings for COVID-19 pneumonia. Heart and vasculature are normal. No measurable pleural eff usion and no pneumothorax. No acute bony abnormality seen. No acute aortic findings suspected. IMPRESSION: No acute cardiopulmonary process. Body habitus and shallow inspiration limiting. No specific findings for COVID-[address] chest i maging is more sensitive for the typical COVID ground-glass infiltrate pattern.
--- NOTE | 2020-07-28 15:04 | RAD REPORT ---
EXAM DESCRIPTION: CT - Chest For Pe Angio - 07/28/2020 2:39 pm CLINICAL HISTORY: flank pain, right sided scapular pain COMPARISON: Chest For Pe Angio dated 07/16/2020 TECHNIQUE: Dynamically enhanced 3 mm thick images of the chest were obtained during administration o f approximately 150mL Isovue 370 IV contrast. Coronal and oblique MIP reconstruction images were gene rated and reviewed. Exam utilizes a protocol to evaluate the pulmonary arterial tree. All CT scans are performed using dose optimization technique as appropriate and may include automated exposure control or mA/KV adjustment according to patient size. FINDINGS: No pulmonary emboli are identified. The aorta as imaged shows no acute or suspicious finding. No pericardial thickening or effusion. Ground-glass opacification is scattered in the peripheral aspects of the mid and lower lung osuna. F indings have diminished in prominence since July 16. Pattern is typical for COVID-19 pneumonia an d would indicate partial resolution. No pleural effusion or pleural thickening. No suspicious mass of the lung parenchyma. No endobronchial lesion. No mediastinal or hilar suspicious masses. No chest wall masses or abnormal axillary lymphadenopathy. IMPRESSION: No pulmonary emboli identified. Partially resolved bilateral COVID-19 pneumonia.
--- NOTE | 2020-07-28 15:06 | RAD REPORT ---
EXAM DESCRIPTION: CT - Abdomen Pelvis W Contrast - 07/28/2020 2:39 pm CLINICAL HISTORY: abdominal pain COMPARISON: CT ABD PELVIS W CONTRAST dated 10/25/2007 TECHNIQUE: Biphasic, helical CT imaging of the abdomen and pelvis was performed following 100 ml non -ionic IV contrast. No oral contrast. All CT scans are performed using dose optimization technique as appropriate and may include automated exposure control or mA/KV adjustment according to patient size. FINDINGS: No suspicious findings in the lung bases. The liver, spleen, and pancreas show no suspicious findings. Patient does have a mild fatty infiltrat ion pattern the liver. Cholecystectomy clips are present. No biliary tree dilatation. Symmetric renal function is seen with no hydronephrosis or suspicious renal mass. No pyelonephritis o r acute parenchymal process. No bladder abnormalities. No adrenal abnormalities. No dilated bowel loops or bowel wall thickening. Sigmoid diverticulosis present without diverticuliti s. Appendix is normal. No free air, free fluid or inflammatory stranding. No hernia, mass or bulky l ymphadenopathy. No suspicious bony findings. IMPRESSION: Contrast enhanced CT abdomen and pelvis showing no acute or emergent finding finding.
[2020-07-28] MEDS ORDERED: MORPHINE 4 MG/ML SYR ONE (15:41)
[2020-07-28] MEDS ORDERED: ONDANSETRON 4 MG/2 ML VIAL ONE (15:42)
--- NOTE | 2020-07-28 16:16 | ER ---
Nurse's Notes [facility] Name: Sintia Garcia Age: 65 yrs Sex: Female : 1955 Arrival Date: 07/28/2020 Time: 10:45 Bed 5 Private MD: Diagnosis: Flank Pain;Coronavirus Presentation: 07/28 12:05 Chief complaint: Patient states: right rib pain radiates to back since Jun 24 and it's iw gradually getting worse, has been sweaty, tested positive for COVID on jul 11, was given abx. Coronavirus screen: Client presents with at least one sign or symptom that may indicate coronavirus-19. Client reports previous positive COVID test result. Ebola Screen: Patient negative for fever greater than or equal to 101.5 degrees Fahrenheit, and additional compatible Ebola Virus Disease symptoms Patient denies exposure to infectious person. Patient denies travel to an Ebola-affected area in the 21 days before illness onset. No symptoms or risks identified at this time. Initial Sepsis Screen: Does the patient meet any 2 criteria? No. Patient's initial sepsis screen is negative. Does the patient have a suspected source of infection? No. Patient's initial sepsis screen is negative. Risk Assessment: Do you want to hurt yourself or someone else? Patient reports no desire to harm self or others. Onset of symptoms was June 24, 2020. 12:05 Method Of Arrival: Ambulatory iw 12:05 Acuity: SALOMON 3 iw Historical: - Allergies: 12:08 No Known Allergies; iw - Home Meds: 14:19 CBD oil [Active]; Turmeric Curcumin 500 mg [Active]; ae4 - PMHx: 12:08 GERD; Hyperlipidemia; High Cholesterol; iw - PSHx: 12:08 Cholecystectomy; Hysterectomy; FOOT SX; Carpal Tunnel Repair; iw - Immunization history:: Adult Immunizations up to date. - Social history:: Smoking status: Patient/guardian denies using tobacco, but has a distant history of tobacco abuse. Screenin:02 Abuse screen: Denies threats or abuse. Nutritional screening: No deficits noted. em Tuberculosis screening: No symptoms or risk factors identified. Fall Risk None identified. Assessment: 13:50 General: Appears in no apparent distress. uncomfortable, Behavior is calm, cooperative, em appropriate for age, Denies fever. Pain: Complains of pain in chest Pain radiates to right arm Pain currently is 6 out of 10 on a pain scale. Neuro: Level of Consciousness is awake, alert, obeys commands, Oriented to person, place, time, situation, Appropriate for age. Cardiovascular: Capillary refill < 3 seconds Patient's skin is warm and dry. Respiratory: Airway is patent Respiratory effort is even, unlabored, Respiratory pattern is regular, symmetrical. GI: Patient currently denies nausea, vomiting. Derm: Skin is intact, is healthy with good turgor, Skin is pink, warm \T\ dry. Musculoskeletal: Capillary refill < 3 seconds, Range of motion: intact in all extremities. 15:15 Reassessment: request something for pain, states her pain is 8/10, provider notified, em received VO for 4 mg zofran and 4 mg morphine IVP x 1. 16:20 Reassessment: Patient appears in no apparent distress at this time. Patient and/or em family updated on plan of care and expected duration. Pain level reassessed. Patient is alert, oriented x 3, equal unlabored respirations, skin warm/dry/pink. Patient denies pain at this time. Patient states feeling better. Vital Signs: 12:05 BP 136 / 79; Pulse 66; Resp 18 S; Temp 98.2; Pulse Ox 98% ; Weight 97.52 kg; Height 5 iw ft. 1 in. (154.94 cm); Pain 6/10; 14:13 BP 115 / 81; Pulse 60; Resp 19; Pulse Ox 98% on R/A; ae4 14:49 BP 132 / 76; Pulse 66; Resp 16; Pulse Ox 96% on R/A; ae4 16:23 BP 124 / 82; Pulse 68; Resp 18; Pulse Ox 99% on R/A; ae4 12:05 Body Mass Index 40.62 (97.52 kg, 154.94 cm) iw ED Course: 10:45 Patient arrived in ED. ag5 12:08 Triage completed. iw 12:09 Arm band placed on. iw 12:53 Jc Barba, GRACIELA is Primary Nurse. ae4 12:56 Georgi Najera PA is PHCP. jm 12:56 Juan J Nava MD is Attending Physician. jm 13:50 Initial lab(s) drawn, by me, sent to lab. Inserted saline lock: 20 gauge in right em antecubital area, using aseptic technique. Blood collected. 14:02 Patient has correct armband on for positive identification. Placed in gown. Bed in low em position. Call light in reach. Side rails up X2. Pulse ox on. NIBP on. 14:22 XRAY Chest (1 view) In Process Unspecified. EDMS 14:40 CT Chest For PE Angio In Process Unspecified. EDMS 14:40 CT Abd/Pelvis - IV Contrast Only In Process Unspecified. EDMS 16:39 No provider procedures requiring assistance completed. ae4 16:44 No provider procedures requiring assistance completed. IV discontinued, intact, em bleeding controlled, No redness/swelling at site. Pressure dressing applied. Administered Medications: 15:27 Drug: Zofran (Ondansetron) 4 mg Route: IVP; Site: right antecubital; em 16:24 Follow up: Response: Pain is decreased ae4 15:29 Drug: morphine 4 mg Route: IVP; Site: right antecubital; em 16:24 Follow up: Response: No adverse reaction; Pain is decreased ae4 Outcome: 16:16 Discharge ordered by . michael 16:44 Discharged to home ambulatory. em 16:44 Condition: stable 16:44 Discharge instructions given to patient, Instructed on discharge instructions, follow up and referral plans. medication usage, Demonstrated understanding of instructions, follow-up care, medications, Prescriptions given X 1. 16:47 Patient left the ED. em Signatures: Dispatcher [employer] EDCO Georgi Najera PA PA [facility] Murphy Argueta RN RN Noemy Mayo RN RN Mauro Robledo ag5 Jc Barba RN RN ae4 Corrections: (The following items were deleted from the chart) 12:09 12:05 Resp 18bpm; Spontaneous; Pulse Ox 98%; Temp 98.2F; 97.52 kg; Height 5 ft. 1 in.; iw BMI: 40.6; Pain 6/10; iw 16:45 16:44 Discharge instructions given to patient, Instructed on discharge instructions, em follow up and referral plans. Demonstrated understanding of instructions, follow-up care, em
--- NOTE | 2020-07-28 16:16 | EDPHYS ---
Physician Documentation [facility] Name: Sintia Garcia Age: 65 yrs Sex: Female : 1955 Arrival Date: 07/28/2020 Time: 10:45 Bed 5 Private MD: ED Physician Juan J Nava HPI: 07/28 13:30 This 65 yrs old Female presents to ER via Ambulatory with complaints of jmm Shoulder Pain. 13:30 The patient or guardian reports chest pain that is located primarily in the anterior jmm chest wall, right breast. Onset: gradually. The pain radiates to the right scapula. This is a 65 year old female with a history of HLP, that presents to the ED with complains of right sided chest pain which radiates into the right scapula. Denies SOB. Recently diagnosed with COVID 19. . Historical: - Allergies: 12:08 No Known Allergies; iw - Home Meds: 14:19 CBD oil [Active]; Turmeric Curcumin 500 mg [Active]; ae4 - PMHx: 12:08 GERD; Hyperlipidemia; High Cholesterol; iw - PSHx: 12:08 Cholecystectomy; Hysterectomy; FOOT SX; Carpal Tunnel Repair; iw - Immunization history:: Adult Immunizations up to date. - Social history:: Smoking status: Patient/guardian denies using tobacco, but has a distant history of tobacco abuse. ROS: 13:30 Constitutional: Negative for fever, chills, and weight loss. jmm 13:30 Cardiovascular: Positive for chest pain, with movement. 13:30 Respiratory: Positive for cough. 13:30 All other systems are negative. Exam: 13:30 Constitutional: This is a well developed, well nourished patient who is awake, alert, jmm and in no acute distress. Head/Face: atraumatic. Eyes: EOMI, no conjunctival erythema appreciated ENT: Moist Mucus Membranes Neck: Trachea midline, Supple 13:30 Abdomen/GI: Non distended, soft Back: Normal ROM Skin: General appearance color normal MS/ Extremity: Moves all extremities, no obvious deformities appreciated, no edema noted to the lower extremities Neuro: Awake and alert, normal gait Psych: Behavior is normal, Mood is normal, Patient is cooperative and pleasant 13:30 Chest/axilla: Inspection: normal, Palpation: is normal. 13:30 Cardiovascular: Rate: normal, Rhythm: regular, Pulses: no pulse deficits are appreciated. 13:30 Respiratory: the patient does not display signs of respiratory distress, Respirations: normal, Breath sounds: are clear throughout. Vital Signs: 12:05 BP 136 / 79; Pulse 66; Resp 18 S; Temp 98.2; Pulse Ox 98% ; Weight 97.52 kg; Height 5 iw ft. 1 in. (154.94 cm); Pain 6/10; 14:13 BP 115 / 81; Pulse 60; Resp 19; Pulse Ox 98% on R/A; ae4 14:49 BP 132 / 76; Pulse 66; Resp 16; Pulse Ox 96% on R/A; ae4 16:23 BP 124 / 82; Pulse 68; Resp 18; Pulse Ox 99% on R/A; ae4 12:05 Body Mass Index 40.62 (97.52 kg, 154.94 cm) iw MDM: 13:30 Patient medically screened. [facility] 16:15 Data reviewed: vital signs, nurses notes. Counseling: I had a detailed discussion with deanna the patient and/or guardian regarding: the historical points, exam findings, and any diagnostic results supporting the discharge/admit diagnosis, the need for outpatient follow up, to return to the emergency department if symptoms worsen or persist or if there are any questions or concerns that arise at home. ED course: Imaging studies unremarkable. No skin lesions appreciated. Patient is advised to follow up with pcp and otherwise given strict return precautions. Patient understood and agrees with the plan of care. . 07/28 13:32 Order name: Basic Metabolic Panel; Complete Time: 14:30 [facility] 07/28 13:32 Order name: CBC with Diff; Complete Time: 14:22 [facility] 07/28 13:32 Order name: LFT's; Complete Time: 14:30 [facility] 07/28 13:32 Order name: Magnesium; Complete Time: 14:30 [facility] 07/28 13:32 Order name: NT PRO-BNP; Complete Time: 14:30 [facility] 07/28 13:32 Order name: PT-INR; Complete Time: 14:22 [facility] 07/28 13:32 Order name: Troponin (emerg Dept Use Only); Complete Time: 14:30 [facility] 07/28 13:32 Order name: XRAY Chest (1 view); Complete Time: 15:06 [facility] 07/28 13:32 Order name: EKG; Complete Time: 13:33 [facility] 07/28 13:32 Order name: Cardiac monitoring; Complete Time: 14:04 [facility] 07/28 13:32 Order name: CT Chest For PE Angio; Complete Time: 15:06 [facility] 07/28 13:32 Order name: CT Abd/Pelvis - IV Contrast Only; Complete Time: 15:31 [facility] 07/28 13:32 Order name: EKG - Nurse/Tech; Complete Time: 14:04 [facility] 07/28 13:32 Order name: IV Saline Lock; Complete Time: 14:04 [facility] 07/28 13:32 Order name: Labs collected and sent; Complete Time: 14:04 [facility] 07/28 13:32 Order name: O2 Per Protocol; Complete Time: 14:04 [facility] 07/28 13:32 Order name: O2 Sat Monitoring; Complete Time: 14:03 [facility] Administered Medications: 15:27 Drug: Zofran (Ondansetron) 4 mg Route: IVP; Site: right antecubital; em 16:24 Follow up: Response: Pain is decreased ae4 15:29 Drug: morphine 4 mg Route: IVP; Site: right antecubital; em 16:24 Follow up: Response: No adverse reaction; Pain is decreased ae4 Disposition: 17:33 Co-signature as Attending Physician, Juan J Nava MD. rn Disposition: 07/28/20 16:16 Discharged to Home. Impression: Flank Pain, Coronavirus. - Condition is Stable. - Discharge Instructions: COVID-19. - Prescriptions for Zanaflex 4 mg Oral Tablet - take 1 tablet by ORAL route every 8 hours As needed; 20 tablet. - Medication Reconciliation Form, Thank You Letter, Antibiotic Education, Prescription Opioid Use form. - Follow up: Private Physician; When: 2 - 3 days; Reason: Recheck today's complaints, Continuance of care, Re-evaluation by your physician. Signatures: Dispatcher [employer] Georgi Eden PA PA jmm Munoz, Edgar, RN RN Noemy Sesay RN RN iw Nieto, Roman, MD MD rn Elliott, Andrea, RN RN ae4 Corrections: (The following items were deleted from the chart) 16:47 16:16 07/28/2020 16:16 Discharged to Home. Impression: Flank Pain; Coronavirus. em Condition is Stable. Forms are Medication Reconciliation Form, Thank You Letter, Antibiotic Education, Prescription Opioid Use. Follow up: Private Physician; When: 2 - 3 days; Reason: Recheck today's complaints, Continuance of care, Re-evaluation by your physician. deanna
[2020-07-28 16:51] VITALS: TEMP 98.2
[2020-07-28 16:55] VITALS: BP 124/82; O2SAT 99
== END 2020-07-28 16:47 | disposition home or self-care (01) ==
LOC: ER 10:44
DX: R10.9 Unspecified abdominal pain (principal); U07.1 COVID-19; R07.89 Other chest pain; E78.00 Pure hypercholesterolemia, unspecified; E78.5 Hyperlipidemia, unspecified
CPT/HCPCS: 93005; 85025; 80048; 36415; 83735; 85610; 80076; 84484; 83880; 71275; 74177; 71045; 96375; 96374; 99284; Q9967; J2405